=== PATIENT | male | born 1965 | race Caucasian/White ===

== ENCOUNTER 2017-02-15 10:46 | Observation (INO) | payer BC ==
--- NOTE | 2017-02-15 11:43 | PCM.PREANE ---
Preanesthetic Assessment - Anesthesia/Transfusion/Family Hx Anesthesia History: No Prior Anesthesia Family History of Anesthesia Reaction: No Transfusion History: No Prior Transfusion(s) Intubation History: Unknown (no history og intubation) - Review of Systems General: No Symptoms Pulmonary: No Symptoms Cardiovascular: No Symptoms Gastrointestinal: Difficulty swallowing Neurological: No Symptoms Other: Reports: None - Physical Assessment Height: 1.75 m Weight: 70.307 kg ASA Class: 2 Mental Status: Alert & Oriented x3 Airway Class: Mallampati = 2 Dentition: Reports: Normal Dentition (loose teeth front lower) Thyro-Mental Finger Breadths: 3 Mouth Opening Finger Breadths: 1 (sec. to pain) ROM/Head Extension: Full Lungs: Clear to auscultation, Normal respiratory effort Cardiovascular: Regular Rate, Regular Rhythm - Allergies Allergies/Adverse Reactions: Allergies Allergy/AdvReac Type Severity Reaction Status Date / Time shellfish derived Allergy Itching Verified 02/11/17 13:36 - Blood Blood Available: No - Anesthesia Plan Pre-Op Medication Ordered: None - Acknowledgements Anesthesia Type Planned: General Anesthesia Pt an Appropriate Candidate for the Planned Anesthesia: Yes Alternatives and Risks of Anesthesia Discussed w Pt/Guardian: Yes Pt/Guardian Understands and Agrees with Anesthesia Plan: Yes PreAnesthesia Questionnaire HEENT History: Reports: Other (see below) (left sided tonsillar cancer with difficulty swallowing) Other HEENT History: uses reading glasses Cardiovascular History: Reports: None Respiratory History: Reports: None Other Gastrointestinal History: difficulty eating/swallowing Genitourinary History: Reports: None Musculoskeletal History: Reports: Fracture, Neck pain, chronic Other Musculoskeletal History: hx of fx right radius Neurological History: Reports: Concussion Psychiatric History: Reports: Anxiety Other Psychiatric History: anxious over current diagnosis Endocrine/Metabolic History: Reports: None Hematologic History: Reports: None Immunologic History: Reports: None Oncologic (Cancer) History: Reports: Squamous cell carcinoma Other Oncologic History: skin cancer removed from left upper chest in the past Dermatologic History: Reports: None - Past Surgical History Head Surgeries/Procedures: Reports: None HEENT Surgical History: Reports: None Cardiovascular Surgical History: Reports: None Respiratory Surgical History: Reports: None GI Surgical History: Reports: None Male Surgical History: Reports: None Endocrine Surgical History: Reports: None Neurological Surgical History: Reports: None Musculoskeletal Surgical History: Reports: None Oncologic Surgical History: Reports: None Dermatological Surgical History: Reports: None - SUBSTANCE USE Smoking Status *Q: Current Every Day Smoker (1 ppd) Tobacco Use Within Last Twelve Months: Cigarettes Recreational Drug Use History: Yes Recreational Drug Type: Reports: Marijuana/Hashish - HOME MEDS Home Medications: Home Meds Gabapentin [Neurontin] 100 mg PO TID 02/11/17 [History] Gabapentin [Neurontin] 300 mg PO BEDTIME 02/11/17 [History] L.acidoph,Paracasei, B.lactis [Probiotic] 1 cap PO DAILY 02/11/17 [History] Multivitamin [Multi-Vitamin Daily] 1 tab PO DAILY 02/11/17 [History] oxyCODONE 5 - 10 mg PO TIDMEALS 02/11/17 [History]
[2017-02-15] MEDS ORDERED: Lidocaine 2% with EPINEPHrine 1:100,000 20 ML MDV ONE (11:48)
[2017-02-15] MEDS ORDERED: Lidocaine 2% 5 ML SDV ONE (12:09)
[2017-02-15] MEDS ORDERED: Propofol 200 MG/20 ML SDV ONE ×2 (12:10→13:42)
[2017-02-15] MEDS ORDERED: Midazolam 1 MG/ML 2 ML SDV ONE (12:10)
[2017-02-15] MEDS ORDERED: fentaNYL 250 MCG/5 ML SDV ONE (12:10)
--- NOTE | 2017-02-15 15:54 | PCM.HP ---
H&P History of Present Illness - General Date of Service: 02/15/17 - History of Present Illness Initial Comments - Free Text/Narative: I was called to see this gentleman in the same-day surgery suite. 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 He was in surgery today for a total dental extraction by Dr. Reed Best DDS ), oral maxillofacial surgeon. During the immediate postoperative period he was noted to have a wide-complex tachycardia that was pulseless. This lasted approximately 90 seconds. During this time he received several chest compressions. He was given lidocaine one dose intravenously. He subsequently converted to sinus rhythm with a pulse. He has no known prior history of cardiopulmonary disease during the dental extraction he also had drainage of an associated cyst. The dental extraction was performed because of high dose radiation therapy is planned for his tumor. - Related Data Allergies/Adverse Reactions: Allergies Allergy/AdvReac Type Severity Reaction Status Date / Time shellfish derived Allergy Itching Verified 02/11/17 13:36 Home Medications: Home Meds Gabapentin [Neurontin] 100 mg PO TID 02/11/17 [History] Gabapentin [Neurontin] 300 mg PO BEDTIME 02/11/17 [History] L.acidoph,Paracasei, B.lactis [Probiotic] 1 cap PO DAILY 02/11/17 [History] Multivitamin [Multi-Vitamin Daily] 1 tab PO DAILY 02/11/17 [History] oxyCODONE 5 - 10 mg PO TIDMEALS 02/11/17 [History] Past Medical History HEENT History: Reports: Other (see below) (left sided tonsillar cancer with difficulty swallowing) Other HEENT History: uses reading glasses Cardiovascular History: Reports: None. Denies: Afib, CAD, Heart Failure, [facility] Respiratory History: Reports: None Gastrointestinal History: Denies: Cirrhosis Other Gastrointestinal History: difficulty eating/swallowing Genitourinary History: Reports: None. Denies: Chronic renal insuffiency Musculoskeletal History: Reports: Fracture, Neck pain, chronic Other Musculoskeletal History: hx of fx right radius Neurological History: Reports: Concussion Psychiatric History: Reports: Anxiety Other Psychiatric History: anxious over current diagnosis Endocrine/Metabolic History: Reports: None. Denies: Diabetes, type I, Diabetes , type II Hematologic History: Reports: None. Denies: Anticoagulation therapy, Bleeding disorder Immunologic History: Reports: None. 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 Cardiovascular Surgical History: Reports: None Respiratory Surgical History: Reports: None GI Surgical History: Reports: None Male Surgical History: Reports: None Endocrine Surgical History: Reports: None Neurological Surgical History: Reports: None Musculoskeletal Surgical History: Reports: None Oncologic Surgical History: Reports: None Dermatological Surgical History: Reports: None Social & Family History - Tobacco Use Smoking Status *Q: Current Every Day Smoker (1 ppd) Years of Tobacco use: 30 Packs/Tins Daily: 1 - Recreational Drug Use Recreational Drug Use: Yes Drug Use in Last 12 Months: No Recreational Drug Type: Reports: Marijuana/Hashish H&P Review of Systems - Review of Systems: Review Of Systems: See Below Free Text/Narrative: This is unobtainable from the patient. See history of present illness. At the time of my examination the patient was still sedated and intubated nasally. Exam - Exam Exam: See Below - Vital Signs Vital Signs: Last Vital Signs Temp 97.0 F 02/15/17 14:36 Pulse 90 02/15/17 15:30 Resp 15 02/15/17 15:30 BP 150/91 H 02/15/17 15:30 Pulse Ox 99 02/15/17 15:30 Weight: 70.307 kg - Exam Physical Exam Comments:: At the time of my examination the patient is still nasally intubated. Vital signs are as per nurse's charting. His lungs are clear to auscultation heart regular rate and rhythm without murmur. Abdomen nontender. No lower extremity edema. Monitor shows sinus rhythm. - Patient Data Lab Results last 24 hrs: Laboratory Results - last 24 hr 02/15/17 02/15/17 Range/Units 15:26 15:26 WBC 13.02 H (4.0-11.0) K/uL RBC 5.43 (4.50-5.90) M/uL Hgb 15.5 (13.0-17.0) g/dL Hct 47.3 (38.0-50.0) % MCV 87.1 (80.0-98.0) fL MCH 28.5 (27.0-32.0) pg MCHC 32.8 (31.0-37.0) g/dL RDW Std Deviation 42.5 (28.0-62.0) fl RDW Coeff of Lakisha 13 (11.0-15.0) % Plt Count 177 (150-400) K/uL MPV 9.90 (7.40-12.00) fL Neut % (Auto) 86.5 H (48.0-80.0) % Lymph % (Auto) 10.1 L (16.0-40.0) % [place] % (Auto) 2.2 (0.0-15.0) % Eos % (Auto) 0.9 (0.0-7.0) % Baso % (Auto) 0.3 (0.0-1.5) % Neut # (Auto) 11.3 H (1.4-5.7) K/uL Lymph # (Auto) 1.3 (0.6-2.4) K/uL [place] # (Auto) 0.3 (0.0-0.8) K/uL Eos # (Auto) 0.1 (0.0-0.7) K/uL Baso # (Auto) 0.0 (0.0-0.1) K/uL Nucleated RBC % 0.0 /100WBC Nucleated RBCs # 0 K/uL Troponin I < 0.10 (0.0-0.29) NG/ML Result Diagrams: 02/15/17 15:26 *Q Meaningful Use (ADM) - VTE *Q VTE Criteria *Q: - Stroke *Q Stroke Criteria *Q: - AMI *Q AMI Criteria *Q: - Problem List (1) Ventricular tachycardia SNOMED Code(s): 95839888 ICD Code: I47.2 - VENTRICULAR TACHYCARDIA Status: Acute Current Visit: Yes (2) Primary oral squamous cell carcinoma SNOMED Code(s): 265825095 ICD Code: C06.9 - MALIGNANT NEOPLASM OF MOUTH, UNSPECIFIED Status: Acute Current Visit: Yes Problem List Initiated/Reviewed/Updated: Yes Orders Last 24hrs: Active Orders 24 hr Category Date Time Status EKG 12 Lead [EKG Documentation Completion] [RC] URGENT Care 02/15/17 15:09 Active Notify Provider Consults [RC] ASDIRECTED Care 02/15/17 15:24 Active Consult to Physician [CONS] Stat Cons 02/15/17 15:21 Active Chest 1V Frontal [CR] Routine Exams 02/15/17 14:36 Taken COMPREHENSIVE METABOLIC PN,CMP [CHEM] Routine Lab 02/15/17 15:26 Received MAGNESIUM [CHEM] Routine Lab 02/15/17 15:26 Received TROPONIN I [CHEM] Routine Lab 02/15/17 21:12 Ordered TROPONIN I [CHEM] Routine Lab 02/16/17 03:12 Ordered Lactated Ringers [Ringers, Lactated] 1,000 ml Med 02/15/17 12:30 Active IV ASDIRECTED Medication Orders Lactated Ringer's (Ringers, Lactated) 1,000 mls @ 125 mls/hr IV ASDIRECTED FARZAD Assessment/Plan Comment:: Will check a 12-lead EKG, chest x-ray, troponin, electrolytes, magnesium. Will get serial troponins. I spoke with , general surgeon who was planning to do a venous access port on this patient. She will see him back in the office after discharge. I also spoke in detail with , the oral maxillofacial surgeon who operated on him today. He recommended soft diet and is given the patient's family prescriptions for pain medication and antibiotics and Peridex oral rinse postoperatively. Will monitor closely in the intensive care unit on cardiac monitoring. Will seek cardiology consultation. Serial troponins. I spoke with further and advised that I would seek a cardiology consultation on this patient as well.
--- NOTE | 2017-02-15 15:56 | PCM.POSTAN ---
POST ANESTHESIA ASSESSMENT - MENTAL STATUS Mental Status: somnolent - RESPIRATORY Respiratory Status: respiratory rate WNL, airway patent, O2 saturation stable - CARDIOVASCULAR CV Status: pulse rate WNL, blood pressure stable - GASTROINTESTINAL GI Status: no symptoms - POST OP HYDRATION Hydration Status: adequate & stable - OBSERVATIONS Free Text/Narrative:: Pt intra-op with V-tach with no pulse and CPR. Pt will be admitted to ICU for close observation and evaluation by the hospitalist service.
--- NOTE | 2017-02-15 16:09 | CR ---
EXAM DATE: 02/15/17 PATIENT'S AGE: 51 Patient: DAVID ORTEGA Facility: [place], [place] Site . Site : [id number] Study: XRay Chest [id number]/24/2017 3:20:46 PM Ordering Physician: Nasir Jackson Final Report: Indication: Status post impressions during surgical procedure Technique: Chest 1 view Comparison: None Findings: Cardiovascular and mediastinum: Heart size and vasculature are normal in caliber and appearance. Mediastinum is within normal limits. Lungs and pleural space: Lungs are clear. No sign of infiltrate or mass. No sign of pleural effusion. No pneumothorax. Bones and soft tissues: No significant findings. Impression: : No acute abnormality. No pneumothorax or rib fracture identified. Dictated by Freida Garcia MD @ Feb 15 2017 3:43PM (Electronic Signature) Report Signed by Proxy and Original Signed Document filed in the Medical Record. MTDD
[2017-02-15] MEDS ORDERED: Ondansetron 4 MG/2 ML SDV IVPUSH PRN (16:10)
[2017-02-15] MEDS ORDERED: Albuterol/Ipratropium 3.0-0.5 MG/3 ML Neb Soln NEB PRN (16:10)
[2017-02-15] MEDS ORDERED: Acetaminophen 325 MG Tab PO PRN (16:10)
[2017-02-15] MEDS ORDERED: Temazepam 15 MG Cap PO PRN (16:10)
[2017-02-15 16:12] LABS: CHLORIDE,CL 107 mmol/L (98-110); SODIUM,NA 141 mmol/L (136-146)
[2017-02-15] MEDS: HYDROmorphone 2 MG/ML Syringe IVPUSH PRN ×3 (16:43→21:52)
[2017-02-15] MEDS: Ampicillin/Sulbactam Na 1.5 GM in Sodium Chloride 0.9% 50 ML IV SCH ×2 (16:44→22:27)
[2017-02-15] MEDS: Lactated Ringers 1,000 ML IV SCH (16:46)
[2017-02-15] MEDS ORDERED: Ampicillin/Sulbactam Na 1.5 GM in Sodium Chloride 0.9% 50 ML IV SCH ×4 (17:00)
--- NOTE | 2017-02-15 17:57 | OR ---
SURGEON: Reed Best DATE OF PROCEDURE: 02/15/2017 TIME OF SURGERY: 1 p.m. PREOPERATIVE DIAGNOSES: 1. Biopsy-proven squamous cell carcinoma of the left tonsillar pillar. 2. Multiple carious teeth. 3. Cyst of the lower left jaw. 4. Full bony impacted wisdom tooth, #17. 5. Pre-radiation patient. POSTOPERATIVE DIAGNOSES: 1. Biopsy-proven squamous cell carcinoma of the left tonsillar pillar. 2. Multiple carious teeth. 3. Cyst of the lower left jaw. 4. Full bony impacted wisdom tooth, #17. 5. Pre-radiation patient. PROCEDURE: Under general anesthesia, extraction of oral maxillary and mandibular teeth including tooth #17 and enucleation and curettage - Biopsy of a cyst from the left posterior mandible. COMMUNITY DEVELOPMENT AIDE: Chace. ANESTHESIA: General anesthesia via nasotracheal intubation without any complications. ESTIMATED BLOOD LOSS: 150 mL. TOTAL IV FLUIDS: 2 L of D5 normal saline. COMPLICATIONS: At the end of the procedure, the patient had an episode of supraventricular tachycardia, pulseless. In the operating room, we did CPR for approximately 20 seconds until the patient was back. JUSTIFICATION FOR THIS PROCEDURE: Mr. 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 Because of the high dose of radiation, they were planning to give this patient. He was on his best interest to have all his maxillary and mandibular teeth removed to prevent osteoradionecrosis of the jaw and also this gentleman had a large cyst of the left posterior mandible that the Radiation/Oncology was trying to rule out as a metastatic lesion versus a dentigerous cyst associated with full bony impacted tooth #17. He has also scheduled to have a port for chemotherapy as well here at [facility]. I had the opportunity to talk to his dentist. We did obtain medical clearance about his procedure. His dentist already took impressions for fabrication of an upper and lower denture, and they were trying to move as fast as we could with his procedure. Because after the teeth had removed, we need to wait approximately 3 weeks for healing before they start radiation. Thus they went over period of time that is safe for the patient to avoid any complications once he start radiation therapy. Consent form was obtained among the complications that I discussed with this patient in detail was the possibility of having temporary versus permanent anesthesia sensation of the left corner of the mouth because the impacted wisdom tooth #17 was extremely close to the left inferior alveolar nerve. I did explain in detail that sometimes this condition is permanent, but in front of the situation when he was diagnosed with his squamous cell carcinoma, the patient completely understood and he also understood he needed to move forward as soon as possible, so he could start treatment for this large tumor of the left tonsillar pillar. PROCEDURE IN DETAIL: The patient was taken down to the operating room. He was placed in a supine position. He was identified by name and identification badge, and at that time, the patient was turn over to the anesthesia team. He was nasally intubated without any complications. He was turned back to the oral-maxillofacial surgery team. He was prepped and draped in a sterile fashion for an oral-maxillofacial surgery procedure. A time-out procedure was done. We did place throat pack oropharyngeal device to preventing from swallowing any teeth during the surgery and then he was anesthetized with lidocaine 2% and 1:100,000 with epinephrine. We used 8 carpules of lidocaine 2% with 1:100,000 with epinephrine. We waited approximately 10 minutes for this medications to effect and then we started surgery on the upper right quadrant. With a 15 blade, we made circular incisions about teeth #3, #5, #6, #7, and #8 with a #9 periosteal elevator, we reflected a mucoperiosteal flap. Then using a 557 surgical cindi and constant irrigation with normal saline solution, we removed bone that was covering the roots of this teeth and then they were extracted with a 150 universal forceps without any complications. Surgical sites were both irrigated with normal saline solution with a bone file instrument, we smoothed the bone surfaces and then we took sutures with 4-0 chromic in interrupted fashion. Then we went to the upper left quadrant. With a 15 blade, we made circular incisions around teeth #9, #10, #11, #13, and #15 with a #9 periosteal elevator, we reflected a mucoperiosteal flap. Teeth were luxated with a straight elevator and then we moved one by one with a 150 universal forceps. Surgical sites were all curetted out with Raciel curette, irrigated thoroughly with normal saline solution and then we took sutures with 4-0 chromic in interrupted fashion. We moved to the lower right quadrant. With a 15 blade, we made circular incisions around teeth #31, #30, #29, #28, #27, #26, and #25 with a #9 periosteal elevator, we reflected a mucoperiosteal flap. Teeth were luxated with a straight elevator with a 575 surgical cindi and constant irrigation with normal saline solution. We sectioned teeth #30 and #31 right in the middle. The roots were removed. All the rest of the teeth on that quadrant were removed without any complications. Surgical sites were curetted out with Raciel curette, irrigated with normal saline solution with a bone file instrument, we smoothed all the bone surfaces and then we took sutures with 4-0 chromic in interrupted fashion. We went to the lower left quadrant. With a 15 blade, we made circular incisions around teeth #18, #19, #20, #21, #22, #23, and #24 and we made an incision distal of tooth #17 with a #9 periosteal elevator, we reflected a mucoperiosteal flap. The left mandibular posterior bone was exposed. Using a pineapple cindi, we removed the buccal bone and then we clearly saw immediately the cystic lesion posterior of teeth #17. Using a Raciel curette, we were able to detach the entire cyst from the nap[place] bone and then with an Allis clamp, we were able to hold the cyst and then with a Raciel curette, we detached the cyst from the buccal bone wall. The cyst was removed, placed in a container, and sent to pathology for examination because we wanted to rule out malignancy and then teeth #17 was removed as well. We detached teeth #17 from the left inferior alveolar nerve and the nerve was preserved and it was intact. We curetted out the cystic lining. We irrigated with normal saline solution and then with a 151 universal forceps, we removed teeth #18, #19, #20, #21, #22, #23, and #24. Teeth #18 and #19 were surgically removed with sectioning the teeth in the middle, removed the roots separately and then we used a Raciel curette in every single surgical site. We used a bone file instrument to smooth all the bone surfaces and then we took sutures with 4-0 chromic in interrupted fashion. At that point, the patient went in supraventricular tachycardia, pulseless, and we started CPR. We removed the oropharyngeal throat pack. We irrigated the mouth with normal saline solution. We packed the surgical sites with the sponges that they were protected with a cord out of the mouth to make sure the patient will not swallow those and we started CPR for approximately 20 seconds and then the patient came back. Anesthesiologist were calling to the operating room. The patient was then transported to anesthesia recovery unit. He was extubated without any complication, but he was admitted to the hospital for observation and cardiac workup. Dr. Norwood was consulted, hospitalist, here in the [facility], and he was admitting the patient who was planning the spend the overnight here in the ICU. From the oral-maxillofacial surgery standpoint, there was no complications with his surgery except that the supraventricular tachycardia was a problem at the end of the case, but the patient came out positively and he was transported to the ICU. All the teeth were sent to pathology for examination as well. Pathology was consulted as well for evaluation of this lesion and to make sure there was no metastatic lesion. Physician responsible for this operative report is Reed Best DDS. MARTINE THAKUR /[id number]
--- NOTE | 2017-02-16 | PCM48HPAN ---
Post Anesthesia Note - EVALUATION WITHIN 48HRS OF ANESTHETIC Vital Signs in Normal Range: Yes Patient Participated in Evaluation: Yes Respiratory Function Stable: Yes Airway Patent: Yes Cardiovascular Function Stable: Yes Hydration Status Stable: Yes Pain Control Satisfactory: Yes Nausea and Vomiting Control Satisfactory: Yes Mental Status Recovered: Yes - COMMENTS/OBSERVATIONS Free Text/Narrative:: Pt had an episode of pulse less wide v-tach intra-op that required compressions. One dose of Lidocaine 100mg IVP was given and patient converted to SR before defibrillation could be attempted. Pt currently in the ICU and is stable at this point. Further evaluation tomorrow by cardiology pending at this point.
[2017-02-16] MEDS: HYDROmorphone 2 MG/ML Syringe IVPUSH PRN ×3 (01:45→08:54)
[2017-02-16] MEDS: Lactated Ringers 1,000 ML IV SCH (01:51)
[2017-02-16 03:42] LABS: CHLORIDE,CL 105 mmol/L (98-110); SODIUM,NA 138 mmol/L (136-146)
[2017-02-16] MEDS: Ampicillin/Sulbactam Na 1.5 GM in Sodium Chloride 0.9% 50 ML IV SCH ×2 (05:18→11:12)
[2017-02-16] MEDS ORDERED: Phenylephrine/Normal Saline 100 MCG/ML 10 ML Syringe ONE (07:06)
[2017-02-16] MEDS ORDERED: ePHEDrine 50 MG/ML SDV ONE (07:06)
[2017-02-16] MEDS ORDERED: Succinylcholine/Normal Saline 200 MG/10 ML Syringe ONE (07:06)
[2017-02-16] MEDS ORDERED: Magnesium Sulfate/Water 40 GM/1,000 ML BAG IV SCH (08:15)
[2017-02-16] MEDS ORDERED: Magnesium Sulfate/Water 4 GM in Premix Bag 1 BAG IV ONE (08:21)
[2017-02-16 09:13] VITALS: BP 116/76
--- NOTE | 2017-02-17 07:42 | CONS ---
DATE OF CONSULTATION: DATE OF : 1965 PRIMARY CARE PHYSICIAN: Vaibhav Laguna MD REASON FOR CONSULTATION: Wide-complex tachycardia after surgery. HISTORY OF PRESENT ILLNESS: This is a 51-year-old male, active smoker, without prior cardiac history, presented to the hospital for a tooth extraction. He was going for tooth extraction on the same day of surgery. He had a general anesthesia intubation and during the procedure, he also received propofol IV drip and phenylephrine due to the episodes of hypotension intraoperatively and then when he was out from the OR, immediately he was found to have his wide-complex tachycardia with a heart rate of probably 160 to 180 and then he underwent a CPR chest compressions for 1 minute as well as lidocaine was given, and he converted to sinus rhythm. At that time, it was noted that the pulse was not palpable and it was not palpable, and the blood pressure cannot be measured at time, and he was transferred to the ICU. The echo was ordered and still pending and the laboratory result showing that WBC was high 17 with hematocrit of 43, platelet of 184. Serum sodium 138, potassium 4.4, chloride 105, bicarbonate 24, BUN is 11, creatinine 0.1. Troponin was negative x3. Sodium 127, calcium 8.6, magnesium 1.6. Currently, he denies any chest pain, and never experienced any chest pressure or shortness of breath. PAST MEDICAL HISTORY: He denied history of hypertension, diabetes, or hyperlipidemia. SOCIAL HISTORY: He is smoking, active smoker, and occasional alcohol use, but he has a history of substance abuse long time ago in the past. FAMILY HISTORY: His father had a history of CAD. His mother has a history of CVA. ALLERGIES: He is allergic to shellfish derivatives. MEDICATIONS: Including ampicillin IV, Dilaudid IV. REVIEW OF SYSTEMS: A 12-point review of systems has been negative except indicated in HPI. PHYSICAL EXAMINATION: VITAL SIGNS: Blood pressure is 133/78, heart rate of 59, O2 saturation is 95% on 1 L, respirations 20. HEENT: Mild pale. No jaundice. Mouth, dry and no JVD. HEART: Normal S1 and S2. No murmur. LUNGS: Clear. ABDOMEN: Soft, nontender. Bowel sounds are present. No hepatosplenomegaly. EXTREMITIES: Legs, no edema. LABORATORY INVESTIGATIONS: EKG strip show questioning the episodes of AV block followed by wide-complex tachycardia seemed to be monomorphic. Echo still pending. ASSESSMENT AND PLAN: This is a 51-year-old male with history of active smoker, denies history of diabetes, hypertension, or hyperlipidemia, status post of day #1 tooth extraction, have wide-complex tachycardia with the episodes of AV block preceding, converted to sinus rhythm after lidocaine and chest compression for 1 minute. I have a suspicion that this could be related to ventricular tachycardia. I will probably going to assess his coronary artery disease by doing a stress test and also going to check his lipid panel and A1c to assess the risk factor of CAD. In meantime, I believe this wide-complex tachycardia could be due to also the episodes of hypotension during the operation as well. Meantime, I will keep potassium more than 4, magnesium more than 2, and I will start him on low-dose beta-deisy Toprol-XL 25. He is going to have EGD with Port-A-Cath placement as well as the G-tube placement by the General Surgery as an outpatient, but I would recommend to assess his coronary artery disease first before going forward. GURWINDER / OFE /[id number] JONATHAN
--- NOTE | 2017-02-18 15:00 | PCM.DCSUM1 ---
[id number] Text/Narrative:: Admission diagnoses: #1. 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 Status post complete dental extraction #3. Ventricular tachycardia requiring resuscitation Discharge diagnoses: #1. 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 Status post complete dental extraction #3. Ventricular tachycardia requiring resuscitation, resolved 51-year-old male that was admitted after experiencing pulseless ventricular tachycardia following complete dental extraction secondary to left-sided tonsillar pillar squamous cell carcinoma that soon will require radiation therapy. Patient had a complete dental extraction by Dr. Reed Best DDS. At the end of the procedure it was noted that the patient was in ventricular tachycardia with wide complex that was pulseless. He received CPR and a dose of lidocaine and converted back to sinus rhythm. He did require a short period of intubation and then was transferred to the ICU for close monitoring. While in the ICU he did not require intubation, was monitored on telemetry which showed that the patient remained in sinus rhythm with a normal heart rate and blood pressure. Echocardiogram was obtained showing an ejection fraction of 60-65%. Serial troponins were negative. Chest x-ray following CPR showed no rib fracture and no acute abnormalities. At time of discharge his white blood cell count was 17,000 likely secondary to his recent surgery. He was seen by our v belt inspector who recommended that the patient be discharged on metoprolol succinate 25 mg daily. At the time of discharge the patient was ambulating, voiding appropriately and tolerating a soft diet. Pain medications and antibiotics were provided by Dr. Best. - Discharge Data Discharge Date: 02/16/17 Discharge Disposition: Home, Self-Care 01 Condition: Good - Patient Summary/Data Consults: Consultations 02/15/17 15:21 Consult to Physician [CONS] Stat 02/15/17 16:37 Consult to Physician [CONS] Urgent - Patient Instructions Diet: Mechanical Soft Activity: As Tolerated Driving: Do Not Drive Showering/Bathing: May Shower Notify Provider of: Fever, Increased Pain, Nausea and/or Vomiting Other/Special Instructions: He will discuss ECHO results with Dr. Freedman. Dr. Freedman has also set him up for an exercise stress test. - Discharge Plan Prescriptions/Med Rec: Metoprolol Succinate 25 mg PO DAILY #30 tab.er.24h Home Medications: Home Meds Gabapentin [Neurontin] 100 mg PO TID 02/11/17 [History] Gabapentin [Neurontin] 300 mg PO BEDTIME 02/11/17 [History] L.acidoph,Paracasei, B.lactis [Probiotic] 1 cap PO DAILY 02/11/17 [History] Multivitamin [Multi-Vitamin Daily] 1 tab PO DAILY 02/11/17 [History] oxyCODONE 5 - 10 mg PO TIDMEALS 02/11/17 [History] Metoprolol Succinate 25 mg PO DAILY #30 tab.er.24h 02/16/17 [Rx] Patient Handouts: Metoprolol tablets, Dental Extraction, Care After, Easy-to- Read Referrals: [facility] [Outside] [facility] [Outside] Tasha Dinh MD [Physician] - 02/23/17 2:00 pm David Laguna MD [Primary Care Provider] - 02/23/17 12:30 pm Reed Best DDS [Physician] - 02/22/17 3:00 pm - Discharge Summary/Plan Comment DC Time >30 min.: No Discharge Summary/Plan Comment: Admission diagnoses: #1. 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 Status post complete dental extraction #3. Ventricular tachycardia requiring resuscitation Discharge diagnoses: #1. 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 Status post complete dental extraction #3. Ventricular tachycardia requiring resuscitation, resolved 51-year-old male that was admitted after experiencing pulseless ventricular tachycardia following complete dental extraction secondary to left-sided tonsillar pillar squamous cell carcinoma that soon will require radiation therapy. Patient had a complete dental extraction by Dr. Reed Best DDS. At the end of the procedure it was noted that the patient was in ventricular tachycardia with wide complex that was pulseless. He received CPR and a dose of lidocaine and converted back to sinus rhythm. He did require a short period of intubation and then was transferred to the ICU for close monitoring. While in the ICU he did not require intubation, was monitored on telemetry which showed that the patient remained in sinus rhythm with a normal heart rate and blood pressure. Echocardiogram was obtained showing an ejection fraction of 60-65%. Serial troponins were negative. Chest x-ray following CPR showed no rib fracture and no acute abnormalities. At time of discharge his white blood cell count was 17,000 likely secondary to his recent surgery. He was seen by our v belt inspector who recommended that the patient be discharged on metoprolol succinate 25 mg daily. At the time of discharge the patient was ambulating, voiding appropriately and tolerating a soft diet. Pain medications and antibiotics were provided by Dr. Best. Discharge plan: #1. Patient will follow up with v belt inspector Dr. Dinh, on February 23, 2017. He has also been scheduled for an exercise stress test. #2. Patient will followup with his primary care provider, Dr. Laguna, on February 23, 2017. #3. Patient will followup with Dr. Best, [place], on February 22, 2017. #4. Prescribe metoprolol succinate 25 mg daily, 30 tabs, zero refills. #5. Pain medications and antibiotics were prescribed by Dr. Best. - Patient Data Vitals - Most Recent: Last Vital Signs Temp 98.4 F 02/16/17 08:00 Pulse 82 02/16/17 09:00 Resp 15 02/16/17 09:00 BP 116/76 02/16/17 09:00 Pulse Ox 94 L 02/16/17 09:00 Weight - Most Recent: 72.1 kg Med Orders - Current: Current Medications Discontinued Medications Acetaminophen (Tylenol) 650 mg PO Q4H PRN PRN Reason: Pain (Mild 1-3)/fever Albuterol/Ipratropium (Duoneb 3.0-0.5 Mg/3 Ml) 3 ml NEB Q4HRRT PRN PRN Reason: Shortness Of Breath/wheezing Ephedrine Sulfate (Ephedrine Sulfate) Confirm Administered Dose 50 mg .ROUTE .STK-MED ONE Stop: 02/16/17 07:07 Fentanyl (Sublimaze) Confirm Administered Dose 250 mcg .ROUTE .STK-MED ONE Stop: 02/15/17 12:11 Hydromorphone HCl (Dilaudid) 1 mg IVPUSH Q2H PRN PRN Reason: Pain (severe 7-10) Last Admin: 02/16/17 08:54 Dose: 1 mg Lactated Ringer's (Ringers, Lactated) 1,000 mls @ 125 mls/hr IV ASDIRECTED FARZAD Last Admin: 02/16/17 01:51 Dose: 125 mls/hr Ampicillin Sodium/Sulbactam (Sodium 1.5 gm/ Sodium Chloride) 50 mls @ 200 mls/ hr IV Q6H FARZAD Ampicillin Sodium/Sulbactam (Sodium 1.5 gm/ Sodium Chloride) 50 mls @ 100 mls/ hr IV Q6H [facility] Last Admin: 02/15/17 16:45 Dose: Not Given Ampicillin Sodium/Sulbactam (Sodium 1.5 gm/ Sodium Chloride) 50 mls @ 100 mls/ hr IV Q6H [facility] Last Admin: 02/16/17 11:12 Dose: 100 mls/hr Magnesium Sulfate 4 gm/ Premix 100 mls @ 50 mls/hr IV ONETIME ONE Stop: 02/16/17 10:20 Last Admin: 02/16/17 08:55 Dose: 50 mls/hr Lidocaine (Xylocaine-Mpf 2%) Confirm Administered Dose 10 ml .ROUTE .STK-MED ONE Stop: 02/15/17 12:10 Lidocaine/Epinephrine (Xylocaine 2% With Epinephrine 1:100,000) Confirm Administered Dose 20 ml .ROUTE .STK-MED ONE Stop: 02/15/17 11:49 Midazolam HCl (Versed 1 Mg/Ml) Confirm Administered Dose 2 mg .ROUTE .STK-MED ONE Stop: 02/15/17 12:11 Ondansetron HCl (Zofran) 4 mg IVPUSH Q4H PRN PRN Reason: Nausea Phenylephrine HCl (Phenylephrine In Ns 100 Mcg/Ml) Confirm Administered Dose 1 mg .ROUTE .STK-MED ONE Stop: 02/16/17 07:07 Phenylephrine HCl (Rufino-Synephrine 0.25% Mild Nasal [place]) Confirm Administered Dose 15 ml .ROUTE .STK-MED ONE Stop: 02/16/17 07:08 Propofol (Diprivan 20 Ml) Confirm Administered Dose 400 mg .ROUTE .STK-MED ONE Stop: 02/15/17 12:11 Propofol (Diprivan 20 Ml) Confirm Administered Dose 400 mg .ROUTE .STK-MED ONE Stop: 02/15/17 13:43 Succinylcholine Chloride (Succinylcholine In Ns Pf) Confirm Administered Dose 200 mg .ROUTE .STK-MED ONE Stop: 02/16/17 07:07 Temazepam (Restoril) 15 mg PO BEDTIME PRN PRN Reason: Sleep *Q Meaningful Use (DIS) - VTE *Q VTE Criteria *Q: - Stroke *Q Stroke Criteria *Q: - AMI *Q AMI Criteria *Q: <Mathieu Estrada Renetta - Last Filed: 02/25/17 19:59> Discharge Summary - Patient Summary/Data Consults: Consultations 02/15/17 15:21 Consult to Physician [CONS] Stat 02/15/17 16:37 Consult to Physician [CONS] Urgent - Patient Data Vitals - Most Recent: Last Vital Signs Temp 36.9 C 02/16/17 08:00 Pulse 82 02/16/17 09:00 Resp 15 02/16/17 09:00 BP 116/76 02/16/17 09:00 Pulse Ox 94 L 02/16/17 09:00 Med Orders - Current: Current Medications Discontinued Medications Acetaminophen (Tylenol) 650 mg PO Q4H PRN PRN Reason: Pain (Mild 1-3)/fever Albuterol/Ipratropium (Duoneb 3.0-0.5 Mg/3 Ml) 3 ml NEB Q4HRRT PRN PRN Reason: Shortness Of Breath/wheezing Ephedrine Sulfate (Ephedrine Sulfate) Confirm Administered Dose 50 mg .ROUTE .STK-MED ONE Stop: 02/16/17 07:07 Fentanyl (Sublimaze) Confirm Administered Dose 250 mcg .ROUTE .STK-MED ONE Stop: 02/15/17 12:11 Hydromorphone HCl (Dilaudid) 1 mg IVPUSH Q2H PRN PRN Reason: Pain (severe 7-10) Last Admin: 02/16/17 08:54 Dose: 1 mg Lactated Ringer's (Ringers, Lactated) 1,000 mls @ 125 mls/hr IV ASDIRECTED [facility] Last Admin: 02/16/17 01:51 Dose: 125 mls/hr Ampicillin Sodium/Sulbactam (Sodium 1.5 gm/ Sodium Chloride) 50 mls @ 200 mls/ hr IV Q6H [facility] Ampicillin Sodium/Sulbactam (Sodium 1.5 gm/ Sodium Chloride) 50 mls @ 100 mls/ hr IV Q6H [facility] Last Admin: 02/15/17 16:45 Dose: Not Given Ampicillin Sodium/Sulbactam (Sodium 1.5 gm/ Sodium Chloride) 50 mls @ 100 mls/ hr IV Q6H [facility] Last Admin: 02/16/17 11:12 Dose: 100 mls/hr Magnesium Sulfate 4 gm/ Premix 100 mls @ 50 mls/hr IV ONETIME ONE Stop: 02/16/17 10:20 Last Admin: 02/16/17 08:55 Dose: 50 mls/hr Lidocaine (Xylocaine-Mpf 2%) Confirm Administered Dose 10 ml .ROUTE .STK-MED ONE Stop: 02/15/17 12:10 Lidocaine/Epinephrine (Xylocaine 2% With Epinephrine 1:100,000) Confirm Administered Dose 20 ml .ROUTE .STK-MED ONE Stop: 02/15/17 11:49 Midazolam HCl (Versed 1 Mg/Ml) Confirm Administered Dose 2 mg .ROUTE .STK-MED ONE Stop: 02/15/17 12:11 Ondansetron HCl (Zofran) 4 mg IVPUSH Q4H PRN PRN Reason: Nausea Phenylephrine HCl (Phenylephrine In Ns 100 Mcg/Ml) Confirm Administered Dose 1 mg .ROUTE .STK-MED ONE Stop: 02/16/17 07:07 Phenylephrine HCl (Rufino-Synephrine 0.25% Mild Nasal [place]) Confirm Administered Dose 15 ml .ROUTE .STK-MED ONE Stop: 02/16/17 07:08 Propofol (Diprivan 20 Ml) Confirm Administered Dose 400 mg .ROUTE .STK-MED ONE Stop: 02/15/17 12:11 Propofol (Diprivan 20 Ml) Confirm Administered Dose 400 mg .ROUTE .STK-MED ONE Stop: 02/15/17 13:43 Succinylcholine Chloride (Succinylcholine In Ns Pf) Confirm Administered Dose 200 mg .ROUTE .STK-MED ONE Stop: 02/16/17 07:07 Temazepam (Restoril) 15 mg PO BEDTIME PRN PRN Reason: Sleep *Q Meaningful Use (DIS) - VTE *Q VTE Criteria *Q: - Stroke *Q Stroke Criteria *Q: - AMI *Q AMI Criteria *Q: - Free Text/Narrative Note: I have examined the patient. I have discussed treatment plan with resident. I agree with assessment and plan outlined in the following resident's note.
--- NOTE | 2017-02-18 17:56 | ECHO ---
EXAM DATE: 02/15/17 The echocardiogram report can be seen in this patient's EMR (Electronic Medical Record) in the Reports section. JONATHAN
== END 2017-02-16 12:25 | disposition home or self-care (01) ==
LOC: MW.SDS 10:46 → INTOOBSV 16:10 → MW.ICU 16:10 → UNDOADMIN 16:11
PROVIDERS: ADMIT Family Medicine; ATTEND Family Medicine
PROC: 0CDXXZ1 Extraction of Lower Tooth, Multiple, External Approach (ICD-10-PCS; principal; 2017-02-15)
PROC: 0CDWXZ1 Extraction of Upper Tooth, Multiple, External Approach (ICD-10-PCS; 2017-02-15)
DX: K02.9 Dental caries, unspecified (principal); K09.0 Developmental odontogenic cysts; K01.1 Impacted teeth; C09.1 Malignant neoplasm of tonsillar pillar (anterior) (posterior); I47.2 Ventricular tachycardia; F41.9 Anxiety disorder, unspecified; F17.210 Nicotine dependence, cigarettes, uncomplicated; Z91.013 Allergy to seafood; Z79.899 Other long term (current) drug therapy; Z98.890 Other specified postprocedural states
CPT/HCPCS: 36415; 41826; 41899; 71010; 80053; 83735; 84484; 85025; 93005; 93306; A9270; G0378; J0287; J1170; J2250; J3010; J3475; J7050; J7120; 00190; 88305; J2704

== ENCOUNTER → 2017-02-25 | Outpatient (CLI) | payer BC ==
--- NOTE | 2017-02-25 08:16 | PCM.PRNOTE ---
- Free Text/Narrative Note: Exercise MIBI Indication CP Sestamibi Tc99 25 MCi was given at the peak HR Patient was brought to the stress test lab in postabsorptive state verbal and paper consent was obtained from patient Vital signs at resting state blood pressure of 110/78with a heart rate of 107 EKG shows sinus rhythm no ST changes no Q waves Maximal heart rate of 166 and target heart rate is 143 Patient reached the target heart rate, completed stage III Jesse protocol Peak blood pressure is 152/78 Total exercise time of 6.[address] changes with a peak heart rate no arrhythmia METS 7 No symptom of chest pain or feeling dizzy Impression Normal hemodynamics, normal chronotropic, adequate exercise capacity, negative for ischemia on EKG Plan Nuclear portion pending
--- NOTE | 2017-02-25 13:53 | NM ---
EXAMINATION: Nuclear medicine myocardial perfusion study with exercise stress test. HISTORY: Stress. PROCEDURE: Patient exercised according to Jesse protocol for 6 minutes and 42 seconds and achieved maximal hear t rate of 166 beats per minute. Adequate exercise. Following intravenous administration of 25.8 mCi of technetium 99m sestamibi, stress SPECT images including gating imaging was performed. FINDINGS: Stress myocardial SPECT images demonstrates mildly decreased perfusion along the inferior to inferos eptal wall, likely diaphragmatic attenuation artifact. Review of gated images demonstrates normal wall motion, contractility and wall thickening. The left ventricular ejection fraction is 62 %. The left ventricular chamber size is normal. IMPRESSION: 1. Mildly decreased perfusion along the inferior wall, most likely diaphragmatic attenuation artifac t. If further correlation is needed follow-up with rest imaging. 2. Normal ventricular chamber size and function with ejection fraction of 62 %.
== END | disposition home or self-care (01) ==
LOC: MW.NM 06:25
PROVIDERS: ATTEND Dentist Oral and Maxillofacial Surgery
DX: Z92.89 Personal history of other medical treatment (principal); R93.1 Abnormal findings on diagnostic imaging of heart and coronary circulation
CPT/HCPCS: 78451; 93017; A9500

== ENCOUNTER → 2017-03-01 | Outpatient (CLI) | payer BC ==
--- NOTE | 2017-03-02 08:37 | NM ---
EXAMINATION: Rest myocardial perfusion study HISTORY: Ventricular tachycardia COMPARISON: 02/25/2017 TECHNIQUE: Additional images were obtained at rest underlying the administration of 26.7 mCi of tech netium 99m labeled sestamibi. FINDINGS/IMPRESSION: Overall of the left ventricular uptake at rest is similar to the stress imaging with mildly decreased uptake along the inferior wall. Ejection fraction at rest is 52%. Wall motio n appears unchanged. The TID is 1.2.
== END | disposition home or self-care (01) ==
LOC: MW.NM 08:25
PROVIDERS: ATTEND Dentist Oral and Maxillofacial Surgery
DX: I47.2 Ventricular tachycardia (principal)
CPT/HCPCS: 78451; A9500

== ENCOUNTER 2017-03-04 06:16 | Day surgery (SDC) | payer BC ==
[~2017-03-04 06:16] MED LIST: Lactated Ringers 1,000 ML IV SCH; Sodium Chloride 0.9% 10 ML Syringe FLUSH PRN; Sodium Chloride 0.9% 2.5 ML Syringe FLUSH PRN; ceFAZolin 1 GM in Premix Bag 1 BAG IV ONE
--- NOTE | 2017-03-04 06:52 | PCM.PREANE ---
Preanesthetic Assessment - Anesthesia/Transfusion/Family Hx Anesthesia History: Prior Anesthesia Without Reaction Family History of Anesthesia Reaction: No Transfusion History: No Prior Transfusion(s) Intubation History: Unknown (no history og intubation) - Review of Systems General: No Symptoms Pulmonary: No Symptoms Cardiovascular: No Symptoms Gastrointestinal: No symptoms Neurological: No Symptoms Other: Reports: None - Physical Assessment O2 Sat by Pulse Oximetry: 97 Respiratory Rate: 18 Vital Signs: Last Vital Signs Temp 36.7 C 03/04/17 06:33 Pulse 85 03/04/17 06:33 Resp 18 03/04/17 06:33 BP 113/69 03/04/17 06:33 Pulse Ox 97 03/04/17 06:33 Height: 1.75 m Weight: 72.1 kg ASA Class: 3 Mental Status: Alert & Oriented x3 Airway Class: Mallampati = 2 Dentition: Reports: Edentulous Thyro-Mental Finger Breadths: 3 Mouth Opening Finger Breadths: 2 ROM/Head Extension: Full Lungs: Clear to auscultation, Normal respiratory effort Cardiovascular: Regular Rate, Regular Rhythm - Allergies Allergies/Adverse Reactions: Allergies Allergy/AdvReac Type Severity Reaction Status Date / Time shellfish derived Allergy Itching Verified 02/11/17 13:36 - Blood Blood Available: No - Anesthesia Plan Pre-Op Medication Ordered: None - Acknowledgements Anesthesia Type Planned: MAC Pt an Appropriate Candidate for the Planned Anesthesia: Yes Alternatives and Risks of Anesthesia Discussed w Pt/Guardian: Yes Pt/Guardian Understands and Agrees with Anesthesia Plan: Yes PreAnesthesia Questionnaire HEENT History: Reports: Other (see below) (underwent recent left jaw cyst excision and removal of remaining teeth before treatment of squamous cell CA of the right tonsill. During the case got run of wide complex pulsless tachi and received chest compression. RI rooled out postop.) Other HEENT History: uses reading glasses Cardiovascular History: Other Cardiovascular History: cardiac problems during last surgery, cleared by Dr. Freedman Respiratory History: Reports: None Other Gastrointestinal History: difficulty eating/swallowing Genitourinary History: Reports: None Musculoskeletal History: Reports: Fracture, Neck pain, chronic Other Musculoskeletal History: hx of fx right radius Neurological History: Reports: Concussion Psychiatric History: Reports: Anxiety Other Psychiatric History: anxious over current diagnosis Endocrine/Metabolic History: Reports: None Hematologic History: Reports: None Immunologic History: Reports: None Oncologic (Cancer) History: Reports: Squamous cell carcinoma Other Oncologic History: skin cancer removed from left upper chest in the past, recent dx of squamous cell cancer of the throat Dermatologic History: Reports: None - Past Surgical History Head Surgeries/Procedures: Reports: None HEENT Surgical History: Reports: Oral surgery, Other (see below) Other HEENT Surgeries/Procedures: total dental extraction 02/15/2017. Cardiovascular Surgical History: Reports: None Respiratory Surgical History: Reports: None GI Surgical History: Reports: None Other GI Surgeries/Procedures: due to oral ca, dental extraction performed Male Surgical History: Reports: None Endocrine Surgical History: Reports: None Neurological Surgical History: Reports: None Musculoskeletal Surgical History: Reports: None Oncologic Surgical History: Reports: None Dermatological Surgical History: Reports: None - SUBSTANCE USE Smoking Status *Q: Current Every Day Smoker Tobacco Use Within Last Twelve Months: Cigarettes Days Per Week of Alcohol Use: 1 Number of Drinks Per Day: 2 Total Drinks Per Week: 2 Recreational Drug Use History: Yes Recreational Drug Type: Reports: Marijuana/Hashish - HOME MEDS Home Medications: Home Meds Gabapentin [Neurontin] 100 mg PO BID 02/11/17 [History] Gabapentin [Neurontin] 300 mg PO BEDTIME 02/11/17 [History] L.acidoph,Paracasei, B.lactis [Probiotic] 1 cap PO DAILY 02/11/17 [History] Multivitamin [Multi-Vitamin Daily] 1 tab PO DAILY 02/11/17 [History] Metoprolol Succinate 25 mg PO DAILY #30 tab.er.24h 02/16/17 [Rx] Docusate Sodium [Colace] 100 mg PO DAILY 03/03/17 [History] Hydrocodone/Acetaminophen [Hydrocodon-Acetaminophn 10-325] 1 tab PO Q4HR PRN 08/10 [History] - CURRENT (IN HOUSE) MEDS Current Meds: Current Medications Lactated Ringer's (Ringers, Lactated) 1,000 mls @ 125 mls/hr IV ASDIRECTED FARZAD Last Admin: 03/04/17 06:37 Dose: 125 mls/hr Sodium Chloride (Saline Flush) 10 ml FLUSH ASDIRECTED PRN PRN Reason: Keep Vein Open Sodium Chloride (Saline Flush) 2.5 ml FLUSH ASDIRECTED PRN PRN Reason: Keep Vein Open Discontinued Medications Cefazolin Sodium/Dextrose 1 gm (/ Premix) 50 mls @ 100 mls/hr IV ONETIME ONE Stop: 03/03/17 14:31
[2017-03-04] MEDS ORDERED: Heparin Sodium 100 Units/ML 3 ML Syringe ONE (07:24)
[2017-03-04] MEDS ORDERED: Lidocaine 1% 20 ML MDV ONE (07:24)
[2017-03-04] MEDS ORDERED: Bupivacaine 0.5% 10 ML SDV ONE (07:24)
[2017-03-04] MEDS ORDERED: Propofol 200 MG/20 ML SDV ONE (07:28)
[2017-03-04] MEDS ORDERED: Lidocaine 2% 5 ML SDV ONE (07:28)
[2017-03-04] MEDS ORDERED: Midazolam 1 MG/ML 2 ML SDV ONE (07:29)
[2017-03-04] MEDS ORDERED: Ondansetron 4 MG/2 ML SDV ONE (07:29)
[2017-03-04] MEDS ORDERED: ceFAZolin 1 GM Vial ONE (07:35)
[2017-03-04] MEDS ORDERED: Sodium Chloride 0.9% 20 ML ONE (07:35)
[2017-03-04] MEDS ORDERED: fentaNYL 100 MCG/2 ML SDV ONE (08:24)
--- NOTE | 2017-03-04 09:17 | PCM.OPNOTE ---
- General Post-Op/Procedure Note Date of Surgery/Procedure: 03/04/17 Operative Procedure(s): Right internal jugular port a cath placement Findings: Right internal jugular port placement Pre Op Diagnosis: Squamous cell cancer of tonsil Post-Op Diagnosis: same Anesthesia Technique: Moderate sedation Primary Surgeon: Keisha Zuniga EBL in mLs: 5 Condition: Good
--- NOTE | 2017-03-04 09:32 | PCM.POSTAN ---
POST ANESTHESIA ASSESSMENT - MENTAL STATUS Mental Status: alert, oriented - RESPIRATORY Respiratory Status: respiratory rate WNL, airway patent, O2 saturation stable - GASTROINTESTINAL GI Status: no symptoms - PAIN Pain Score: 6 - POST OP HYDRATION Hydration Status: adequate & stable - OBSERVATIONS Free Text/Narrative:: no anesthesia problems
[2017-03-04 10:33] VITALS: BP 115/75
--- NOTE | 2017-03-04 12:34 | CR ---
EXAMINATION: Portable chest radiograph. HISTORY: Port-A-Cath placement. FINDINGS: The trachea is midline. The cardiomediastinal silhouette is within normal limits. No pulmonary infil trates, effusions or or pneumothorax, however the lung apices are not included. A right-sided portac atheter is noted with tip in good position. Osseous structures appear unremarkable. IMPRESSION: Right-sided portacatheter noted with tip in good position.
--- NOTE | 2017-03-04 14:48 | OR ---
SURGEON: RO LAUREN MD DATE OF PROCEDURE: 03/04/2017 PREOPERATIVE DIAGNOSIS: Squamous cell cancer of the tonsil. POSTOPERATIVE DIAGNOSIS: Squamous cell cancer of the tonsil. PROCEDURE PERFORMED: Right internal jugular Port-A-Cath placement. ANESTHESIA: MAC LMA. ESTIMATED BLOOD LOSS: 5 mL. FINDINGS: Placement of right internal jugular Port-A-Cath. COMPLICATIONS: None. 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 He presented to clinic in consultation for both a port and feeding tube placement. Prior to my procedure, the patient underwent tooth extraction during which he lost pulses. The patient underwent CPR with a quick return of a perfusing rhythm. The patient has undergone an extensive cardiac workup to elucidate the inciting factors that cause his pulseless episode. The metal plater concluded that this was secondary to anesthetic and surgical factors. He has cleared the patient to undergo further procedures. I discussed this patient's case with his radiation oncologist, Anesthesiology, and Cardiology. It is felt that he is safe to go forward with a port and feeding tube placement. In order to limit the amount of sedation that the patient will get, we decided to perform the port 1st before attempting the G-tube placement as he will need to undergo general anesthetic with endotracheal tube placement for that procedure. The patient and I discussed his case in length including both procedures. Decision was made to proceed with a Port-A-Cath placement. We discussed the procedure, expected perioperative course, and risks including bleeding, infection, or damage to surrounding structures, including anesthetic risks. The patient verbalized understanding and wishes to proceed. PROCEDURE IN DETAIL: The patient was brought into the operating room and placed on the OR table in supine position. A time-out was completed verifying the patient's name, age, date of , allergies, and procedure to be performed. Monitored anesthesia care was induced and an LMA was placed. An ultrasound was brought in to the field and I identified the vascular anatomy of the right side of the neck. The patient's right IJ appeared widely open and patent. The right neck and chest were then prepped and draped in the usual standard fashion. The ultrasound was covered in a sterile probe cover and I used it to again identify the vascular anatomy of the right side of the neck. The right IJ and right carotids were identified. The area overlying the right internal jugular vein was anesthetized with 0.5% Marcaine plain. I used the remainder of the Marcaine to anesthetize the catheter tract and port site. Using a finder needle and the ultrasound, I obtained access under direct visualization into the right internal jugular vein. A brisk return of venous blood was noted. A guidewire was placed down the finder needle and into the vein. The finder needle was removed and the C-arm was brought in. This verified that the guidewire had been passed down the right internal jugular vein into the superior vena cava. The guidewire was then secured to the drapes. Next, I turned my attention to the right chest wall. A 4 cm incision was made 2 fingerbreadths below the right lateral clavicle on the chest wall using a #15 blade. I then used cautery to dissect down through the subcutaneous tissue to the chest wall, and I made a subcutaneous pocket. The Port-A-Cath tubing was then tunneled up to the guidewire neck site from my site on the chest. I then brought the C-arm back in and dilated the vein over the guidewire using fluoroscopy. The dilator and guidewire were removed leaving the introducer sheath in place in the vein. The catheter tubing was then placed down through the sheath into the chest. The sheath was then broken away and removed from the patient. The C-arm was used to confirm that the catheter tubing was within the SVC. This was pulled back under fluoroscopy to an appropriate position. An x-ray was taken and saved. The catheter tubing was then aspirated with a good return of venous blood. It was trimmed and placed over the Port-A-Cath. The port was then secured to the chest wall in the subcutaneous pocket using 2-0 Prolenes. The pocket was then closed using 3-0 Vicryl in the subcutaneous fat and the skin was closed using running 4-0 Monocryl suture. The insertion site on the neck was closed with interrupted 4-0 Monocryl. The Steri-Strips and sterile dressings were applied. The counts were complete and correct at the end of the case. The patient was taken to the PACU in stable condition. The Port-A-Cath was then accessed in the preop area and locked with heparin. His post operative CXR showed no evidence of pneumothorax or hemothorax. BHANU THAKUR /[id number] MTDD
== END 2017-03-04 10:30 | disposition home or self-care (01) ==
LOC: MW.SDS 06:16
PROVIDERS: ATTEND Surgery
DX: C09.9 Malignant neoplasm of tonsil, unspecified (principal); Z91.013 Allergy to seafood; Z79.2 Long term (current) use of antibiotics; Z79.899 Other long term (current) drug therapy; Z98.890 Other specified postprocedural states; F17.210 Nicotine dependence, cigarettes, uncomplicated; Z78.9 Other specified health status
CPT/HCPCS: 36561; 71010; 76000; J0690; J1642; J2250; J2405; J3010; J7120; 00532; J2704

== ENCOUNTER 2017-03-08 10:08 | Day surgery (SDC) | payer BC ==
[~2017-03-08 10:08] MED LIST changes: -ceFAZolin 1 GM in Premix Bag 1 BAG IV ONE
[2017-03-08] MEDS ORDERED: Propofol 200 MG/20 ML SDV ONE ×2 (11:27→11:42)
[2017-03-08] MEDS ORDERED: Lidocaine 2% 5 ML SDV ONE ×2 (11:27→11:41)
--- NOTE | 2017-03-08 11:29 | PCM.PREANE ---
Preanesthetic Assessment - Anesthesia/Transfusion/Family Hx Anesthesia History: No Prior Anesthesia Type of Anesthesia Reaction: Other (see below) (pulslesss wide complex ( ventricular) tachycardia during teeth extraction.) Family History of Anesthesia Reaction: Yes Transfusion History: No Prior Transfusion(s) Intubation History: Unknown (no history og intubation) - Review of Systems General: No Symptoms Pulmonary: No Symptoms Cardiovascular: No Symptoms Gastrointestinal: Difficulty swallowing Neurological: No Symptoms Other: Reports: None - Physical Assessment Height: 1.75 m Weight: 72.1 kg ASA Class: 3 Mental Status: Alert & Oriented x3 Airway Class: Mallampati = 2 Dentition: Reports: Edentulous Thyro-Mental Finger Breadths: 3 Mouth Opening Finger Breadths: 2 ROM/Head Extension: Full Lungs: Clear to auscultation, Normal respiratory effort Cardiovascular: Regular Rate, Regular Rhythm - Allergies Allergies/Adverse Reactions: Allergies Allergy/AdvReac Type Severity Reaction Status Date / Time shellfish derived Allergy Itching Verified 03/04/17 10:13 - Blood Blood Available: No - Anesthesia Plan Pre-Op Medication Ordered: None - Acknowledgements Anesthesia Type Planned: General Anesthesia Pt an Appropriate Candidate for the Planned Anesthesia: Yes Alternatives and Risks of Anesthesia Discussed w Pt/Guardian: Yes Pt/Guardian Understands and Agrees with Anesthesia Plan: Yes PreAnesthesia Questionnaire HEENT History: Reports: Other (See Below) Other HEENT History: Squamous cell cancer of the tonsill. Uses reading glasses. Cardiovascular History: Reports: Other (See Below) Other Cardiovascular History: hx of cardiac arrythmia/arrest during jaw surgery Respiratory History: Reports: None Other Gastrointestinal History: difficulty eating/swallowing Genitourinary History: Reports: None Musculoskeletal History: Reports: Fracture, Neck Pain, Chronic Other Musculoskeletal History: hx of fx right radius Neurological History: Reports: Concussion Psychiatric History: Reports: Anxiety Other Psychiatric History: anxious over current diagnosis Endocrine/Metabolic History: Reports: None Hematologic History: Reports: None Immunologic History: Reports: None Oncologic (Cancer) History: Reports: Squamous Cell Carcinoma Other Oncologic History: skin cancer removed from left upper chest in the past Dermatologic History: Reports: None - Past Surgical History Head Surgeries/Procedures: Reports: None HEENT Surgical History: Reports: Oral Surgery, Other (See Below) Other HEENT Surgeries/Procedures: total dental extraction with exc. of mandibular cyst 02/15/2017. Cardiovascular Surgical History: Reports: None Respiratory Surgical History: Reports: None GI Surgical History: Reports: None Other GI Surgeries/Procedures: due to oral ca, dental extraction performed Male Surgical History: Reports: None Endocrine Surgical History: Reports: None Neurological Surgical History: Reports: None Musculoskeletal Surgical History: Reports: None Oncologic Surgical History: Reports: None Dermatological Surgical History: Reports: None Other Surgical History Comment: port-a-cath placement last week - SUBSTANCE USE Smoking Status *Q: Current Every Day Smoker Tobacco Use Within Last Twelve Months: Cigarettes Days Per Week of Alcohol Use: 1 Number of Drinks Per Day: 2 Total Drinks Per Week: 2 Recreational Drug Use History: Yes Recreational Drug Type: Reports: Marijuana/Hashish - HOME MEDS Home Medications: Home Meds Gabapentin [Neurontin] 100 mg PO BID 02/11/17 [History] Gabapentin [Neurontin] 300 mg PO BEDTIME 02/11/17 [History] L.acidoph,Paracasei, B.lactis [Probiotic] 1 cap PO DAILY 02/11/17 [History] Multivitamin [Multi-Vitamin Daily] 1 tab PO DAILY 02/11/17 [History] Metoprolol Succinate 25 mg PO DAILY #30 tab.er.24h 02/16/17 [Rx] Docusate Sodium [Colace] 100 mg PO DAILY 03/03/17 [History] Hydrocodone/Acetaminophen [Hydrocodon-Acetaminophn 10-325] 1 tab PO Q4HR PRN 08/10 [History] - CURRENT (IN HOUSE) MEDS Current Meds: Current Medications Lactated Ringer's (Ringers, Lactated) 1,000 mls @ 125 mls/hr IV ASDIRECTED FARZAD Sodium Chloride (Saline Flush) 10 ml FLUSH ASDIRECTED PRN PRN Reason: Keep Vein Open Sodium Chloride (Saline Flush) 2.5 ml FLUSH ASDIRECTED PRN PRN Reason: Keep Vein Open
[2017-03-08] MEDS ORDERED: Lidocaine 1% 20 ML MDV ONE (11:39)
[2017-03-08] MEDS ORDERED: Midazolam 1 MG/ML 2 ML SDV ONE (11:44)
[2017-03-08] MEDS ORDERED: fentaNYL 100 MCG/2 ML SDV ONE (11:44)
[2017-03-08] MEDS ORDERED: Succinylcholine/Normal Saline 200 MG/10 ML Syringe ONE (12:33)
[2017-03-08] MEDS ORDERED: Dexamethasone 4 MG/ML 5 ML MDV ONE (12:33)
--- NOTE | 2017-03-08 12:39 | PCM.OPNOTE ---
- General Post-Op/Procedure Note Date of Surgery/Procedure: 03/08/17 Operative Procedure(s): Percutaneous endoscopic gastrostomy tube placement Findings: Large mass on left side of the neck that made intubation of the endoscope into the esophagus difficult. Endoscope able to be passed safely into the stomach. PEG placed in antrum with skin bumper 3 cm at the skin. Pre Op Diagnosis: Squamous cell tonsilar cancer Post-Op Diagnosis: same Anesthesia Technique: General ET tube Primary Surgeon: Keisha Zuniga Condition: Good
--- NOTE | 2017-03-08 12:55 | PCM.OPNOTE ---
- General Post-Op/Procedure Note Date of Surgery/Procedure: 03/08/17 Operative Procedure(s): EGD for PEG placement Pre Op Diagnosis: Tonsillar Ca--Stage IV. Need for nutrition for upcoming chemoradiotherapy Post-Op Diagnosis: Same Anesthesia Technique: General ET tube (III) Primary Surgeon: Carlos Carlos Secondary Surgeon: Keisha Zuniga Condition: Good Free Text/Narrative:: Dictation [id number]
[2017-03-08] MEDS ORDERED: Racepinephrine 2.25% 0.5 ML Neb Soln NEB ONE (13:04)
[2017-03-08] MEDS ORDERED: Meperidine PF 25 MG/ML Syringe IVPUSH ONE (13:21)
[2017-03-08] MEDS ORDERED: Meperidine PF 50 MG/ML Syringe ONE (13:25)
[2017-03-08] MEDS ORDERED: Meperidine PF 50 MG/ML Syringe IVPUSH ONE (13:30)
--- NOTE | 2017-03-08 14:02 | PCM.POSTAN ---
POST ANESTHESIA ASSESSMENT - MENTAL STATUS Mental Status: alert, oriented - RESPIRATORY Respiratory Status: respiratory rate WNL, airway patent, O2 saturation stable - CARDIOVASCULAR CV Status: pulse rate WNL, blood pressure stable - GASTROINTESTINAL GI Status: no symptoms - POST OP HYDRATION Hydration Status: adequate & stable
[2017-03-08 15:23] VITALS: BP 156/86
--- NOTE | 2017-03-08 21:36 | OR ---
SURGEON: RO LAUREN MD DATE OF PROCEDURE: 03/08/2017 PREOPERATIVE DIAGNOSIS: Squamous cell cancer of the tonsil. POSTOPERATIVE DIAGNOSIS: Squamous cell cancer of the tonsil. PROCEDURE PERFORMED: Percutaneous endoscopic gastrostomy tube placement. CO-SURGEON: Dr. Carlos Carlos. ANESTHESIA: General endotracheal anesthesia. ESTIMATED BLOOD LOSS: 5 mL. FINDINGS: A large mass in the left side of the posterior oropharynx making endoscopy difficult. Endoscope was able to be placed safely down into the stomach. A feeding tube was placed into the antrum. Bumper at the skin at 3 cm. COMPLICATIONS: None. INDICATIONS: The patient is a 51-year-old male with squamous cell cancer of the tonsil. The patient will be undergoing radiation and chemotherapy treatment. The patient will need a feeding access for his time during these treatments. The patient and I discussed PEG placement versus open gastrostomy tube placement. I explained that should we be unable to pass the endoscope past the patient's mass in his posterior oropharynx, we would be performing the tube placement through a traditional open incision. We discussed both procedures as well as expected perioperative course. We discussed the risks including bleeding, infection, and/or damage to surrounding structures including any possible overlying bowel. The patient verbalized understanding and wishes to proceed. PROCEDURE IN DETAIL: The patient was brought into the operating room and placed on the operating room table in supine position. A time-out was completed verifying the patient's name, age, date of , allergies, and procedure to be performed. General endotracheal anesthetic was induced. The abdomen was then prepped and draped in the usual standard fashion. Dr. Carlos Carlos performed the endoscopic portion of this exam. Please see his dictation for details. Once the endoscope was passed into the stomach, the stomach was insufflated. The scope was then brought down into the antrum and pushed up against the anterior antrum to allow transillumination through the abdominal skin. The transillumination was clearly visible and a spot marked on the patient's abdomen. I passed a 22-gauge needle through the abdominal skin into the stomach. The needle was visible in the antrum of the stomach. I then slowly withdrew the needle back while aspirating looking for any air bubbles once the needle had gone past the gastric mucosa and on its way to the abdominal skin. No bubbles were noted. The needle was passed back through this tract and the area anesthetized with 1% lidocaine plain. A finder needle was then passed along this tract into the stomach. The needle was removed and sheath left in place. A guidewire was then placed into the abdomen and grasped with a guidewire that had been passed through the endoscope. This was then pulled up out through the patient's mouth. The feeding tube was then looped around this guidewire and the wire pulled back through the patient's mouth, esophagus, and into the stomach allowing the feeding tube to be pulled down into the stomach. The feeding tube was pulled until the bumper was flush against the gastric mucosa and tied against the skin. The measurement of the feeding tubing at the skin was 3 cm. This allowed sufficient tightness to hold the stomach up against the abdominal wall, but not too tight. The bumper was allowed to be twirled easily without undue tension. The bumper was then placed up against the skin again at 3 cm. A drain gauze was placed underneath the bumper to dress the wound. This feeding tube was then trimmed to size and placed to gravity drainage with a large glove placed over the end of the feeding tube. The patient tolerated the procedure well with no acute complications. Counts were complete and correct at the end of the case. The patient was taken to the postoperative care unit in stable condition. BHANU THAKUR /[id number]
--- NOTE | 2017-03-09 06:23 | OR ---
SURGEON: Carlos Carlos M.D. DATE OF PROCEDURE: 03/08/2017 OPERATION PERFORMED: Endoscopic placement of percutaneous feeding gastrostomy. CO-SURGEON: Dr. Zuniga. ANESTHESIA: General endotracheal. ASA CLASSIFICATION: III. DESCRIPTION OF PROCEDURE: The patient was taken to the operating room, placed on the operating table in the supine position. Time-out was called for appropriate identification of patient and procedure. Following satisfactory attainment of general endotracheal anesthesia, I was able to insert the esophagogastroduodenoscope into the mouth. With great difficulty, we were able to maneuver the gastroscope beyond the oropharyngeal cancer and enter the esophagus. Once we entered the esophagus, scope was easily advanced into the stomach, which was then distended with air. One could see the light reflecting through the abdominal wall. The abdomen was then prepped per Dr. Zuniga's instructions, and that portion of the procedure will be dictated by her. Once the needle was passed into the stomach and removed leaving the sheath, the wire was passed into the stomach and then grasped with the loop snare and brought out through the mouth. The feeding tube was then affixed to the guidewire and slowly and carefully advanced back into the mouth and then into the esophagus back into the stomach. The gastroscope was able to be reinserted and advanced through the esophagus into the stomach to confirm appropriate placement of the feeding tube. Multiple photographs were taken. No biopsies were taken. The gastroscope was then slowly withdrawn and 1 photograph of the large tumor on the left side of his oropharynx was taken. The patient tolerated the procedure well. The remainder of the procedure will be dictated by Dr. Zuniga. EROS / OFE /[id number]
== END 2017-03-08 15:04 | disposition home or self-care (01) ==
LOC: MW.SDS 10:08
PROVIDERS: ATTEND Surgery
DX: C09.9 Malignant neoplasm of tonsil, unspecified (principal); I47.2 Ventricular tachycardia; F17.210 Nicotine dependence, cigarettes, uncomplicated; Z91.013 Allergy to seafood; Z98.890 Other specified postprocedural states
CPT/HCPCS: 43246; J1100; J2175; J2250; J3010; J7120; 00126; J2704

== ENCOUNTER 2018-01-23 05:46 | Emergency (ER) | payer BC ==
[2018-01-23] MEDS ORDERED: Sodium Chloride 0.9% 10 ML Syringe FLUSH PRN (05:51)
[2018-01-23] MEDS ORDERED: Sodium Chloride 0.9% 2.5 ML Syringe FLUSH PRN (05:51)
[2018-01-23] MEDS ORDERED: Sodium Chloride 0.9% 1,000 ML IV ONE (05:52)
[2018-01-23] MEDS ORDERED: Ondansetron 4 MG/2 ML SDV IVPUSH ONE (05:52)
--- NOTE | 2018-01-23 06:09 | EDM.PDOC ---
ED HPI GENERAL MEDICAL PROBLEM - General Stated Complaint: THROWING UP BLOOD Time Seen by Provider: 01/23/18 05:55 Source of Information: Reports: Patient History Limitations: Reports: No Limitations - History of Present Illness INITIAL COMMENTS - FREE TEXT/NARRATIVE: History of present illness: []Patient arrives coughing up copious amount of bright red blood that began prior to arrival. He has a history of throat and neck cancer in 2017 and was treated with radiation. His medical oncologist is in [place], Dr. Olmedo and his radiation oncologist, Dr. Colunga is in [place]. Patient uses a PEG for nutrition but does take meds orally. Patient denies any recent illnesses, vomiting, diarrhea, abdominal pain. Patient states he feels mildly short of breath and states he feels like the bleeding came from his right lung and points to a specific area on his right mid chest. Review of systems: As per history of present illness and below otherwise all systems reviewed and negative. Past medical history: As per history of present illness and as reviewed below otherwise noncontributory. Surgical history: As per history of present illness and as reviewed below otherwise noncontributory. Social history: No reported history of drug or alcohol abuse. Family history: As per history of present illness and as reviewed below otherwise noncontributory. Physical exam: General: Well developed, well nourished in NAD HEENT: Atraumatic, normocephalic, pupils reactive, negative for conjunctival pallor or scleral icterus, mucous membranes moist, throat clear, neck supple, nontender, trachea midline. Right red Blood in his oral cavity and nares him a no stridor Lungs: Clear to auscultation, breath sounds equal bilaterally, chest nontender. No rhonchi or chest wall retractions Heart: S1S2, regular, negative for clicks, rubs, or JVD. Abdomen: Soft, nondistended, nontender. Negative for masses or hepatosplenomegaly. Negative for costovertebral tenderness. Pelvis: Stable nontender. Genitourinary: Deferred. Rectal: Deferred. Extremities: Atraumatic, negative for cords or calf pain. Neurovascular unremarkable. Neuro: Awake, alert, oriented. Cranial nerves II through XII unremarkable. Cerebellum unremarkable. Motor and sensory unremarkable throughout. Exam nonfocal. Diagnostics: []Chest x-ray shows no pneumothoraces or effusion, CBC, CMP, coags pending at this time Therapeutics: []IV fluids, 2 units of O- blood is ordered, Zofran for nausea Impression: []Hemoptysis, history of throat cancer 2017 treated with radiation Plan: []Transfer to [facility] Dr. Best accepts patient will be flown Definitive disposition and diagnosis as appropriate pending reevaluation and review of above. 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 Uses reading glasses. Cardiovascular History: Reports: Other (See Below) Other Cardiovascular History: cardiac problems during last surgery, cleared by Dr. rFeedman Respiratory History: Reports: None Other Gastrointestinal History: difficulty eating/swallowing Genitourinary History: Reports: None Musculoskeletal History: Reports: Fracture, Neck Pain, Chronic Other Musculoskeletal History: hx of fx right radius Neurological History: Reports: Concussion Psychiatric History: Reports: Anxiety Other Psychiatric History: anxious over current diagnosis Endocrine/Metabolic History: Reports: None Hematologic History: Reports: None Immunologic History: Reports: None Oncologic (Cancer) History: Reports: Squamous Cell Carcinoma Other Oncologic History: skin cancer removed from left upper chest in the past Dermatologic History: Reports: None - Past Surgical History Head Surgeries/Procedures: Reports: None HEENT Surgical History: Reports: Oral Surgery, Other (See Below) Other HEENT Surgeries/Procedures: total dental extraction with exc. of mandibular cyst 02/15/2017. Respiratory Surgical History: Reports: None GI Surgical History: Reports: None Other GI Surgeries/Procedures: due to oral ca, dental extraction performed Male Surgical History: Reports: None Endocrine Surgical History: Reports: None Neurological Surgical History: Reports: None Musculoskeletal Surgical History: Reports: None Oncologic Surgical History: Reports: None Dermatological Surgical History: Reports: None Social & Family History - Family History Family Medical History: Noncontributory - Tobacco Use Smoking Status *Q: Current Every Day Smoker Years of Tobacco use: 30 Packs/Tins Daily: 0.7 - Alcohol Use Days Per Week of Alcohol Use: 1 Number of Drinks Per Day: 2 Total Drinks Per Week: 2 - Recreational Drug Use Recreational Drug Use: Yes Drug Use in Last 12 Months: No Recreational Drug Type: Reports: Marijuana/Hashish ED ROS ENT - Review of Systems Review Of Systems: See Below (See history of present illness) ED EXAM, ENT - Physical Exam Exam: See Below (See history of present illness) Course - Vital Signs Last Recorded V/S: Last Vital Signs Temp 97 F 01/23/18 05:54 Pulse 120 H 01/23/18 05:54 Resp 24 H 01/23/18 05:54 BP 115/65 01/23/18 05:54 Pulse Ox 93 L 01/23/18 05:54 - Orders/Labs/Meds Orders: Active Orders 24 hr Category Date Time Status Chest 1V Frontal [CR] Stat Exams 01/23/18 05:52 Taken CBC WITH AUTO DIFF [HEME] Stat Lab 01/23/18 06:06 Received COMPREHENSIVE METABOLIC PN,CMP [CHEM] Stat Lab 01/23/18 06:06 Received INR,PT,PROTHROMBIN TIME [COAG] Stat Lab 01/23/18 06:06 Received PTT,PARTIAL THROMBOPLSTIN TIME [COAG] Stat Lab 01/23/18 06:06 Received RED BLOOD CELLS LP [BBK] Stat Lab 01/23/18 06:06 Received TYPE AND SCREEN [BBK] Stat Lab 01/23/18 06:06 Received Sodium Chloride 0.9% [Normal Saline] 1,000 ml Med 01/23/18 05:52 Active IV .Bolus Sodium Chloride 0.9% [Saline Flush] Med 01/23/18 05:51 Active 10 ml FLUSH ASDIRECTED PRN Sodium Chloride 0.9% [Saline Flush] Med 01/23/18 05:51 Active 2.5 ml FLUSH ASDIRECTED PRN Saline Lock Insert [OM.PC] Stat Oth 01/23/18 05:51 Ordered Transfuse Red Blood Cells [COMM] Stat Oth 01/23/18 05:59 Ordered Medication Orders Sodium Chloride (Normal Saline) 1,000 mls @ 999 mls/hr IV .Bolus ONE Stop: 01/23/18 06:52 Last Admin: 01/23/18 06:11 Dose: 999 mls/hr Sodium Chloride (Saline Flush) 10 ml FLUSH ASDIRECTED PRN PRN Reason: Keep Vein Open Last Admin: 01/23/18 06:01 Dose: 10 ml Sodium Chloride (Saline Flush) 2.5 ml FLUSH ASDIRECTED PRN PRN Reason: Keep Vein Open Last Admin: 01/23/18 06:00 Dose: 2.5 ml Meds: Medications Generic Name Dose Route Start Last Admin Trade Name Freq PRN Reason Stop Dose Admin Sodium Chloride 1,000 mls @ 999 mls/hr 01/23/18 05:52 01/23/18 06:11 Normal Saline IV 01/23/18 06:52 999 mls/hr .Bolus ONE Administration Sodium Chloride 10 ml 01/23/18 05:51 01/23/18 06:01 Saline Flush FLUSH 10 ml ASDIRECTED PRN Administration Keep Vein Open Sodium Chloride 2.5 ml 01/23/18 05:51 01/23/18 06:00 Saline Flush FLUSH 2.5 ml ASDIRECTED PRN Administration Keep Vein Open Discontinued Medications Generic Name Dose Route Start Last Admin Trade Name Freq PRN Reason Stop Dose Admin Ondansetron HCl 4 mg 01/23/18 05:52 01/23/18 06:12 Zofran IVPUSH 01/23/18 05:53 4 mg ONETIME ONE Administration Departure - Departure Time of Disposition: 06:40 Disposition: DC/Tfer to Acute Hospital 02 Condition: Serious Clinical Impression: Hemoptysis - Discharge Information Referrals: PCP,None [Primary Care Provider] - - My Orders Last 24 Hours: My Active Orders 01/23/18 05:51 Sodium Chloride 0.9% [Saline Flush] 10 ml FLUSH ASDIRECTED PRN Sodium Chloride 0.9% [Saline Flush] 2.5 ml FLUSH ASDIRECTED PRN Saline Lock Insert [OM.PC] Stat 01/23/18 05:52 Chest 1V Frontal [CR] Stat Sodium Chloride 0.9% [Normal Saline] 1,000 ml IV .Bolus 01/23/18 05:59 Transfuse Red Blood Cells [COMM] Stat 01/23/18 06:06 CBC WITH AUTO DIFF [HEME] Stat COMPREHENSIVE METABOLIC PN,CMP [CHEM] Stat INR,PT,PROTHROMBIN TIME [COAG] Stat PTT,PARTIAL THROMBOPLSTIN TIME [COAG] Stat RED BLOOD CELLS LP [BBK] Stat TYPE AND SCREEN [BBK] Stat - Assessment/Plan Last 24 Hours: My Active Orders 01/23/18 05:51 Sodium Chloride 0.9% [Saline Flush] 10 ml FLUSH ASDIRECTED PRN Sodium Chloride 0.9% [Saline Flush] 2.5 ml FLUSH ASDIRECTED PRN Saline Lock Insert [OM.PC] Stat 01/23/18 05:52 Chest 1V Frontal [CR] Stat Sodium Chloride 0.9% [Normal Saline] 1,000 ml IV .Bolus 01/23/18 05:59 Transfuse Red Blood Cells [COMM] Stat 01/23/18 06:06 CBC WITH AUTO DIFF [HEME] Stat COMPREHENSIVE METABOLIC PN,CMP [CHEM] Stat INR,PT,PROTHROMBIN TIME [COAG] Stat PTT,PARTIAL THROMBOPLSTIN TIME [COAG] Stat RED BLOOD CELLS LP [BBK] Stat TYPE AND SCREEN [BBK] Stat
[2018-01-23 06:38] LABS: CHLORIDE,CL 100 mmol/L (98-107); SODIUM,NA 139 mmol/L (136-148)
[2018-01-23 06:48] VITALS: BP 102/60
--- NOTE | 2018-01-24 13:19 | CR ---
EXAM DATE: 01/23/18 PATIENT'S AGE: 52 Patient: DAVID ORTEGA Facility: [place], [place] Site . Site : 1965 Study: XRay Chest [id number]/1/2018 6:16:02 AM Ordering Physician: Doctor Gilbert Final Report: Indication: Hematemesis Technique: Chest 1 view Comparison: 03/04/2017 Findings/Impression: Cardiovascular and mediastinum: Heart size and vasculature are normal in caliber and appearance. Mediastinum is within normal limits. Lungs and pleural space: A few apparent faint nodular opacities in the right lower lung, measuring up to 5 millimeters, and a few apparent micronodular opacities in the left lower lung, not seen on the prior. Correlate for an infectious process and followup. If these do not resolve on short term followup , correlate with CT. No pleural effusion. Bones and soft tissues: No significant change. Dictated by Tenzin Hernandez MD @ 01/23/2018 6:26:52 AM Dictated by: Tenzin Hernandez MD @ 01/23/2018 06:27:07 (Electronic Signature) Report Signed by Proxy. JONATHAN
== END 2018-01-23 06:50 ==
LOC: MW.ED 05:46
DX: R04.2 Hemoptysis (principal); Z91.013 Allergy to seafood; Z79.899 Other long term (current) drug therapy; F17.210 Nicotine dependence, cigarettes, uncomplicated
CPT/HCPCS: 36415; 36430; 71045; 80053; 85025; 85610; 85730; 86850; 86900; 86901; 86920; 86921; 86922; 96361; 96374; 99285; J2405; J7040; P9016; 99284

== ENCOUNTER 2018-01-29 19:42 | Emergency (ER) | payer BC ==
[2018-01-29] MEDS ORDERED: Sodium Chloride 0.9% 1,000 ML IV ONE (19:56)
[2018-01-29] MEDS ORDERED: Ondansetron 4 MG/2 ML SDV IVPUSH ONE (19:56)
--- NOTE | 2018-01-29 19:57 | EDM.PDOC ---
ED HPI GENERAL MEDICAL PROBLEM - General Chief Complaint: Gastrointestinal Problem Stated Complaint: PT HAS STOMACH PAINS Time Seen by Provider: 01/29/18 19:57 Source of Information: Reports: Patient - History of Present Illness INITIAL COMMENTS - FREE TEXT/NARRATIVE: HISTORY AND PHYSICAL: History of present illness: [Patient with history of stage IV cancer which is apparently a squamous cell carcinoma that initially involved his left tonsil has undergone chemotherapy and radiation the last treatments were one year prior. He has chronic pain and has been on fentanyl and Christiana, currently he takes Christiana once every 4 hours however over the last 2 days he has not taken any on arrival he as 10 out of 10 epigastric region pain, he has a history of reflux currently no fever vomiting chills sweats no chest pain shortness of breath headache dizziness or palpitation no bowel or urine symptoms ] patient had recent transfer to [place] due to GI bleeding patient states he was evaluated by ENT who did not find any abnormality, is planning to follow with GI specialists out of [place] clinic hemoglobin is stable over the last several days Review of systems: As per history of present illness and below otherwise all systems reviewed and negative. Past medical history: As per history of present illness and as reviewed below otherwise noncontributory. Surgical history: As per history of present illness and as reviewed below otherwise noncontributory. Social history: No reported history of drug or alcohol abuse. Family history: As per history of present illness and as reviewed below otherwise noncontributory. Physical exam: HEENT: Atraumatic, normocephalic, pupils reactive, negative for conjunctival pallor or scleral icterus, mucous membranes moist, throat clear, neck supple, nontender, trachea midline. Lungs: Clear to auscultation, breath sounds equal bilaterally, chest nontender. Heart: S1S2, regular, negative for clicks, rubs, or JVD. Abdomen: Soft, nondistended, nontender. Negative for masses or hepatosplenomegaly. Negative for costovertebral tenderness. patent tube noted Pelvis: Stable nontender. Genitourinary: Deferred. Rectal: Deferred. Extremities: Atraumatic, negative for cords or calf pain. Neurovascular unremarkable. Neuro: Awake, alert, oriented. Cranial nerves II through XII unremarkable. Cerebellum unremarkable. Motor and sensory unremarkable throughout. Exam nonfocal. Diagnostics: [ CBC CMP troponin amylase lipase EKG Chest [address] abdomen pelvis with contrast Ultrasound right upper quadrant ] Therapeutics: [1 L normal saline Zofran 8 mg IV Morphine 2 mg IV Dilaudid 1 mg IV Proton X 80 mg IV ] Impression: [ epigastric pain- resolved with above treatment, patient offered admission a declines he prefers to go home pain is 0 out of 10 at current Cholelithiasis Possible biliary colic Chronic history of baseline ] Definitive disposition and diagnosis as appropriate pending reevaluation and review of above. 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 Uses reading glasses. Cardiovascular History: Reports: Other (See Below) Other Cardiovascular History: cardiac problems during last surgery, cleared by Dr. Freedman Respiratory History: Reports: None Other Gastrointestinal History: difficulty eating/swallowing Genitourinary History: Reports: None Musculoskeletal History: Reports: Fracture, Neck Pain, Chronic Other Musculoskeletal History: hx of fx right radius Neurological History: Reports: Concussion Psychiatric History: Reports: Anxiety Other Psychiatric History: anxious over current diagnosis Endocrine/Metabolic History: Reports: None Hematologic History: Reports: None Immunologic History: Reports: None Oncologic (Cancer) History: Reports: Squamous Cell Carcinoma Other Oncologic History: skin cancer removed from left upper chest in the past Dermatologic History: Reports: None - Infectious Disease History Infectious Disease History: Reports: Chicken Pox, Measles, Mumps - Past Surgical History Head Surgeries/Procedures: Reports: None HEENT Surgical History: Reports: Oral Surgery, Other (See Below) Other HEENT Surgeries/Procedures: total dental extraction with exc. of mandibular cyst 02/15/2017. Respiratory Surgical History: Reports: None GI Surgical History: Reports: None Other GI Surgeries/Procedures: due to oral ca, dental extraction performed Male Surgical History: Reports: None Endocrine Surgical History: Reports: None Neurological Surgical History: Reports: None Musculoskeletal Surgical History: Reports: None Oncologic Surgical History: Reports: None Dermatological Surgical History: Reports: None Social & Family History - Family History Family Medical History: Noncontributory - Tobacco Use Smoking Status *Q: Current Every Day Smoker Years of Tobacco use: 30 Packs/Tins Daily: 0.7 - Caffeine Use Caffeine Use: Reports: Coffee - Alcohol Use Days Per Week of Alcohol Use: 1 Number of Drinks Per Day: 2 Total Drinks Per Week: 2 - Recreational Drug Use Recreational Drug Use: Yes Drug Use in Last 12 Months: No Recreational Drug Type: Reports: Marijuana/Hashish ED ROS GENERAL - Review of Systems Review Of Systems: ROS reveals no pertinent complaints other than HPI. ED EXAM, GENERAL - Physical Exam Exam: See Below Course - Vital Signs Last Recorded V/S: Last Vital Signs Temp 98.6 F 01/29/18 23:32 Pulse 90 01/29/18 23:32 Resp 18 01/29/18 23:32 BP 112/67 01/29/18 23:32 Pulse Ox 96 01/29/18 23:32 - Orders/Labs/Meds Orders: Active Orders 24 hr Category Date Time Status Abdomen Ltd [US] Stat Exams 01/29/18 21:50 Taken Abdomen Pelvis w Cont [CT] Stat Exams 01/29/18 20:06 Taken Labs: Laboratory Tests 01/29/18 01/29/18 Range/Units 20:08 20:08 WBC 9.54 (4.0-11.0) K/uL RBC 4.33 L (4.50-5.90) M/uL Hgb 12.5 L (13.0-17.0) g/dL Hct 37.0 L (38.0-50.0) % MCV 85.5 (80.0-98.0) fL MCH 28.9 (27.0-32.0) pg MCHC 33.8 (31.0-37.0) g/dL RDW Std Deviation 41.4 (28.0-62.0) fl RDW Coeff of Lakisha 13 (11.0-15.0) % Plt Count 255 (150-400) K/uL MPV 9.70 (7.40-12.00) fL Add Manual Diff YES Neutrophils % (Manual) 75 (48.0-80.0) % Band Neutrophils % 3 % Lymphocytes % (Manual) 15 L (16.0-40.0) % Monocytes % (Manual) 6 (0.0-15.0) % Eosinophils % (Manual) 1 (0.0-7.0) % Nucleated RBC % 0.0 /100WBC Absolute Seg Neuts 7.2 H (1.4-5.7) Band Neutrophils # 0.3 Lymphocytes # (Manual) 1.4 (0.6-2.4) Monocytes # (Manual) 0.6 (0.0-0.8) Eosinophils # (Manual) 0.1 (0.0-0.7) Nucleated RBCs # 0 K/uL Sodium 135 L (136-148) mmol/L Potassium 3.7 (3.5-5.1) mmol/L Chloride 98 (98-107) mmol/L Carbon Dioxide 25.7 (21.0-32.0) mmol/L BUN 19 H (7.0-18.0) mg/dL Creatinine 1.0 (0.8-1.3) mg/dL Est Cr Clr Drug Dosing TNP Estimated GFR (MDRD) > 60.0 ml/min Glucose 154 H (74-106) mg/dL Calcium 9.4 (8.5-10.1) mg/dL Total Bilirubin 0.7 (0.2-1.0) mg/dL AST 16 (15-37) IU/L ALT 24 (14-63) IU/L Alkaline Phosphatase 80 (46-116) U/L Troponin I < 0.050 (0.000-0.056) ng/mL Total Protein 8.0 (6.4-8.2) g/dL Albumin 3.7 (3.4-5.0) g/dL Globulin 4.3 H (2.0-3.5) g/dL Albumin/Globulin Ratio 0.9 L (1.3-2.8) Amylase 24 L (25-115) U/L Lipase 108 (73-393) U/L Meds: Medications Discontinued Medications Generic Name Dose Route Start Last Admin Trade Name Freq PRN Reason Stop Dose Admin Hydromorphone HCl 1 mg 01/29/18 20:51 01/29/18 20:59 Dilaudid IVPUSH 01/29/18 20:52 1 mg ONETIME ONE Administration Sodium Chloride 1,000 mls @ 999 mls/hr 01/29/18 19:56 01/29/18 20:15 Normal Saline IV 01/29/18 20:56 999 mls/hr STAT ONE Administration Iopamidol 100 ml 01/29/18 21:22 01/29/18 21:24 Isovue-370 (76%) IVPUSH 01/29/18 21:23 100 ml ONETIME STA Administration Morphine Sulfate 2 mg 01/29/18 19:59 01/29/18 20:17 Morphine IVPUSH 01/29/18 20:00 2 mg ONETIME ONE Administration Ondansetron HCl 8 mg 01/29/18 19:56 01/29/18 20:16 Zofran IVPUSH 01/29/18 19:57 8 mg ONETIME ONE Administration Pantoprazole Sodium 80 mg 01/29/18 21:24 01/29/18 21:39 Protonix Iv IVPUSH 01/29/18 21:25 80 mg .BOLUS ONE Administration Departure - Departure Time of Disposition: 01:00 Disposition: Home, Self-Care 01 Condition: Good Clinical Impression: Abdominal pain - Discharge Information Referrals: PCP,None [Primary Care Provider] - Forms: ED Department Discharge Additional Instructions: Continue current medications as directed Return if symptoms persist or worsen Follow-up with primary care in 2 weeks Consider GI specialist follow-up With history of cholelithiasis will have you follow-up with general surgery to evaluate biliary colic as a potential cause [facility] - General Surgery [address], [address] [place] [address] The following information is given to patients seen in the emergency department who are being discharged to home. This information is to outline your options for follow-up care. We provide all patients seen in our emergency department with a follow-up referral. The need for follow-up, as well as the timing and circumstances, are variable depending upon the specifics of your emergency department visit. If you don't have a primary care physician on staff, we will provide you with a referral. We always advise you to contact your personal physician following an emergency department visit to inform them of the circumstance of the visit and for follow-up with them and/or the need for any referrals to a consulting specialist. The emergency department will also refer you to a specialist when appropriate. This referral assures that you have the opportunity for follow-up care with a specialist. All of these measure are taken in an effort to provide you with optimal care, which includes your follow-up. Under all circumstances we always encourage you to contact your private physician who remains a resource for coordinating your care. When calling for follow-up care, please make the office aware that this follow-up is from your recent emergency room visit. If for any reason you are refused follow-up, please contact the [facility] emergency department at and asked to speak to the emergency department charge nurse. - My Orders Last 24 Hours: My Active Orders 01/29/18 20:06 Abdomen Pelvis w Cont [CT] Stat 01/29/18 21:50 Abdomen Ltd [US] Stat - Assessment/Plan Last 24 Hours: My Active Orders 01/29/18 20:06 Abdomen Pelvis w Cont [CT] Stat 01/29/18 21:50 Abdomen Ltd [US] Stat
[2018-01-29] MEDS ORDERED: Morphine 4 MG/ML Syringe IVPUSH ONE (19:59)
[2018-01-29 20:51] LABS: CHLORIDE,CL 98 mmol/L (98-107); SODIUM,NA 135 mmol/L (136-148)
[2018-01-29] MEDS ORDERED: HYDROmorphone 2 MG/ML SDV IVPUSH ONE (20:51)
[2018-01-29] MEDS ORDERED: Iopamidol 755 Mg/ML 100 ML Bottle IVPUSH STA (21:22)
[2018-01-29] MEDS ORDERED: Pantoprazole 40 MG Vial IVPUSH ONE (21:24)
[2018-01-30 01:13] VITALS: BP 117/67
--- NOTE | 2018-01-31 13:27 | CT ---
EXAM DATE: 01/29/18 PATIENT'S AGE: 52 Patient: DAVID ORTEGA Facility: [place], [place] Site . Site : 1965 Study: CT Abdomen/Pelvis WITH [id number]/7/2018 9:27:17 PM Ordering Physician: Doctor Gilbert Final Report: INDICATION: Generalized abdominal pain with nausea and vomiting. History of head and neck cancer. TECHNIQUE: CT abdomen and pelvis acquired with i.v. 100 mL Isovue 370. Coronal and sagittal reformats were obtained. COMPARISON: None FINDINGS: Outside Operator CT images: Nonobstructive bowel gas pattern. Gastric tube noted in the left upper abdomen. Lower chest: Emphysematous changes. Nodular opacification in the posterior right lower lobe on series 201, image 12, consider small area of infectious or inflammatory etiology, including round atelectasis. Liver: Unremarkable. Spleen: Coarse splenic calcifications, indicating prior granulomatous infection. Splenic size normal. Pancreas: Unremarkable. Gallbladder and bile ducts: No radiopaque gallstones or abnormal biliary dilatation. Subjective thickening of the gallbladder wall with possible minimal fat stranding adjacent to the gallbladder. Kidneys: Unremarkable. No kidney or ureteral stones and no hydronephrosis seen. Adrenal glands: Unremarkable. GI tract: Gastric tube. In satisfactory position. Loops of bowel are normal in caliber. No acute inflammatory changes involving the large bowel. Vascular: Portal vein branches, splenic vein, SMV patent. Iliac veins and IVC are patent. No abdominal aortic aneurysm. Origins of celiac artery and SMA are patent. No abnormal twisting of the mesenteric vessels. Lymph nodes: Unremarkable. Miscellaneous: Unremarkable. No pneumoperitoneum is seen. No significant ascites is noted. Pelvic Organs: Unremarkable. Bones: Unremarkable for age. IMPRESSION: 1. Possible gallbladder wall thickening with trace amount of fat stranding. No radiopaque gallstones or abnormal biliary dilatation. Consider targeted right upper quadrant abdominal ultrasound and correlation with laboratory markers to exclude acute cholecystitis. 2. Focal inflammatory or infectious process in the posterior right lower lobe, series 201, image 12. Recommend short interval followup in 4-6 weeks. Dictated by Ari Cotton MD @ 01/29/2018 9:46:54 PM Dictated by: Ari Cotton MD @ 01/29/2018 21:47:08 (Electronic Signature) Patient: DAVID ORTEGA Facility: [place], [place] Site . Site : 1965 Study: CT Abdomen/Pelvis WITH [id number]/7/2018 9:27:23 PM Ordering Physician: Doctor Gilbert Final Report: INDICATION: Generalized abdominal pain, nausea and vomiting. History of head neck cancer. TECHNIQUE: Volumetric helical scanning of the abdomen and pelvis was performed with 100 cc of Isovue 370 contrast material IV. Coronal and sagittal reconstructions were obtained. COMPARISON: None. FINDINGS: There is no evidence of bowel obstruction or inflammation. A normal appendix is noted. A gastrostomy tube is present. Sigmoid diverticulosis is demonstrated. There is no evidence of diverticulitis. The bowel is otherwise unremarkable. No free fluid or free air is demonstrated. The liver is normal in size, shape and attenuation. The gallbladder is borderline hydropic. No bile duct dilation is evident. The spleen is within normal limits. The adrenal glands are unremarkable. The pancreas is within normal limits. The kidneys are unremarkable. No lymphadenopathy is evident. The prostate is mildly enlarged. Rounded atelectasis is present in the posteromedial right lower lobe base. Subtle nodular infiltrates are also demonstrated in the lower lobe bases. The heart is normal in size. IMPRESSION: 1. Rounded atelectasis in the posteromedial right lower lobe base and subtle nodular infiltrates in both lower lobe bases. 2. Borderline hydropic gallbladder. 3. Sigmoid diverticulosis but no evidence of diverticulitis. 4. Gastrostomy tube in place, properly positioned. 5. Mild prostate enlargement. Please note that all CT scans at this facility use dose modulation, iterative reconstruction, and/or weight-based dosing when appropriate to reduce radiation dose to as low as reasonably achievable. Dictated by Clint Marin MD @ Jan 29 2018 9:46PM (Electronic Signature) Report Signed by Proxy. JONATHAN
--- NOTE | 2018-01-31 13:33 | US ---
EXAM DATE: 01/29/18 PATIENT'S AGE: 52 Patient: DAVID ORTEGA Facility: [place], [place] Site . Site : 1965 Study: US Abdomen [id number]/7/2018 10:29:34 PM Ordering Physician: Tae Dickerson Final Report: INDICATION: Abdominal pain. TECHNIQUE: Ultrasound abdomen limited. Sonographic images of the right upper quadrant were obtained using castellon-scale and color Doppler images. COMPARISON: None. FINDINGS: Liver: Normal in size and echotexture. No masses. No intrahepatic biliary dilatation. Gallbladder: Multiple gallbladder stones are present. No sign of gallbladder wall thickening or pericholecystic fluid. Common bile duct: 3 mm. Pancreas: Unremarkable. Right kidney: Normal in size. Normal echotexture and cortex. No masses, stones, or hydronephrosis. Vasculature: Proximal abdominal aorta and IVC are normal. IMPRESSION: Cholelithiasis without further evidence of cholecystitis. The remainder of the exam is unremarkable. Dictated by Haroldo Contreras MD @ Jan 29 2018 10:35PM (Electronic Signature) Report Signed by Proxy. [facility]
== END 2018-01-30 01:15 | disposition home or self-care (01) ==
LOC: MW.ED 19:42
DX: K80.20 Calculus of gallbladder without cholecystitis without obstruction (principal); F17.210 Nicotine dependence, cigarettes, uncomplicated; Z91.013 Allergy to seafood; Z79.899 Other long term (current) drug therapy; Z85.818 Personal history of malignant neoplasm of other sites of lip, oral cavity, and pharynx
CPT/HCPCS: 36415; 74177; 76705; 80053; 82150; 83690; 84484; 85025; 96361; 96374; 96375; 99284; C9113; J1170; J1642; J2270; J2405; J7040; Q9967; 99283

== ENCOUNTER 2019-01-25 06:30 | Day surgery (SDC) | payer BC ==
[~2019-01-25 06:30] MED LIST changes: +Sodium Chloride 0.9% 10 ML SDV IV PRN
[2019-01-25] MEDS ORDERED: Midazolam 1 MG/ML 2 ML SDV ONE (07:00)
[2019-01-25] MEDS ORDERED: Propofol 200 MG/20 ML SDV ONE (07:00)
[2019-01-25] MEDS ORDERED: Lidocaine 2% 5 ML SDV ONE (07:00)
[2019-01-25] MEDS ORDERED: fentaNYL 100 MCG/2 ML SDV ONE (07:00)
--- NOTE | 2019-01-25 07:13 | PCM.PREANE ---
Preanesthetic Assessment - Anesthesia/Transfusion/Family Hx Anesthesia History: Prior Anesthesia Without Reaction Other Type of Anesthesia Reaction Comment: NSVT during dental surgery, neg cardiac workup Family History of Anesthesia Reaction: No Transfusion History: Prior Transfusion Without Reaction Intubation History: Unknown (no history og intubation) - Review of Systems General: No Symptoms Pulmonary: No Symptoms Gastrointestinal: No Symptoms Neurological: No Symptoms Other: Reports: None - Physical Assessment NPO Status Date: 01/24/19 Height: 5 ft 9 in Weight: 71.214 kg ASA Class: 2 Mental Status: Alert & Oriented x3 Airway Class: Mallampati = 3 Dentition: Reports: Edentulous ROM/Head Extension: Full Lungs: Clear to Auscultation, Normal Respiratory Effort Cardiovascular: Regular Rate, Regular Rhythm - Allergies Allergies/Adverse Reactions: Allergies Allergy/AdvReac Type Severity Reaction Status Date / Time shellfish derived Allergy Itching Verified 01/20/19 08:00 - Blood Blood Available: No - Anesthesia Plan Pre-Op Medication Ordered: None - Acknowledgements Anesthesia Type Planned: MAC Pt an Appropriate Candidate for the Planned Anesthesia: Yes Alternatives and Risks of Anesthesia Discussed w Pt/Guardian: Yes Pt/Guardian Understands and Agrees with Anesthesia Plan: Yes PreAnesthesia Questionnaire HEENT History: Reports: Other (See Below) Other HEENT History: Squamous cell cancer of the tonsill. Uses reading glasses. , has dentures but does not wear them Cardiovascular History: Reports: Other (See Below) Other Cardiovascular History: cardiac problems during oral surgery, "woke up in ICU", was seen by Dr. Shrestha in 2017, "everything was good", has preop appt with Dr. Baca on wednesday01/23/19 Respiratory History: Reports: Sleep Apnea, Other (See Below) Other Respiratory History: Pulmonary Emphysema Gastrointestinal History: Reports: GERD, GI Bleed Other Gastrointestinal History: GI bleed 2 weeks following throat Bx in [place] , was sent to [place] and had blood transfusion Genitourinary History: Reports: None Musculoskeletal History: Reports: Fracture, Other (See Below) Other Musculoskeletal History: hx of fx right radius Neurological History: Reports: Concussion Psychiatric History: Reports: Anxiety Endocrine/Metabolic History: Other Endocrine/Metabolic History: 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, on no meds Hematologic History: Reports: Blood Transfusion(s) Immunologic History: Reports: None Oncologic (Cancer) History: Reports: Squamous Cell Carcinoma, Other (See Below) Other Oncologic History: skin cancer removed from left upper chest, squamous cell carcinoma of left tonsill Dermatologic History: Reports: Other (See Below) Other Dermatologic History: dry itchy skin - Infectious Disease History Infectious Disease History: Reports: Chicken Pox, Measles, Mumps - Past Surgical History Head Surgeries/Procedures: Reports: None HEENT Surgical History: Reports: Oral Surgery, Other (See Below) Other HEENT Surgeries/Procedures: total dental extraction with exc. of mandibular cyst 02/15/2017. hx throat Bx Cardiovascular Surgical History: Reports: None Respiratory Surgical History: Reports: None GI Surgical History: Reports: Other (See Below) Other GI Surgeries/Procedures: difficulty swallowing has Peg Tube Male Surgical History: Reports: None Endocrine Surgical History: Reports: None Neurological Surgical History: Reports: None Musculoskeletal Surgical History: Reports: None Oncologic Surgical History: Reports: None Dermatological Surgical History: Reports: Skin Biopsy - SUBSTANCE USE Smoking Status *Q: Current Every Day Smoker Tobacco Use Within Last Twelve Months: Cigarettes Recreational Drug Use History: No - HOME MEDS Home Medications: Home Meds Hydrocodone/Acetaminophen [Hydrocodon-Acetaminophn 10-325] 1 tab PEGTUBE Q4HR PRN 03/03/17 [History] ALPRAZolam [Xanax] 1 tab PEGTUBE ASDIRECTED PRN 01/20/19 [History] Esomeprazole Magnesium 1 tab PEGTUBE DAILY 01/20/19 [History] Nutritional Supplement [Nutren 1.5] 1 dose PEGTUBE TID 01/20/19 [History] Vitamin E 1 tab PEGTUBE DAILY 01/20/19 [History] - CURRENT (IN HOUSE) MEDS Current Meds: Current Medications Cefazolin Sodium (Ancef) 1 gm IM ONETIME ONE Stop: 01/25/19 09:01 Lactated Ringer's (Ringers, Lactated) 1,000 mls @ 125 mls/hr IV ASDIRECTED FARZAD Sodium Chloride (Saline Flush) 10 ml FLUSH ASDIRECTED PRN PRN Reason: Keep Vein Open Sodium Chloride (Saline Flush) 2.5 ml FLUSH ASDIRECTED PRN PRN Reason: Keep Vein Open Sodium Chloride (Normal Saline) 10 ml IV ASDIRECTED PRN PRN Reason: IV Use Discontinued Medications Fentanyl (Sublimaze) Confirm Administered Dose 100 mcg .ROUTE .STK-MED ONE Stop: 01/25/19 07:01 Lidocaine (Xylocaine-Mpf 2%) Confirm Administered Dose 5 ml .ROUTE .STK-MED ONE Stop: 01/25/19 07:01 Midazolam HCl (Versed 1 Mg/Ml) Confirm Administered Dose 2 mg .ROUTE .STK-MED ONE Stop: 01/25/19 07:01 Propofol (Diprivan 20 Ml) Confirm Administered Dose 400 mg .ROUTE .STK-MED ONE Stop: 01/25/19 07:01
[2019-01-25] MEDS ORDERED: Bupivacaine 0.5% 10 ML SDV ONE (07:25)
[2019-01-25] MEDS ORDERED: Lidocaine 1% 20 ML MDV ONE (07:26)
[2019-01-25] MEDS ORDERED: Sodium Chloride 0.9% 20 ML ONE (07:47)
[2019-01-25] MEDS ORDERED: ceFAZolin 1 GM Vial ONE (07:47)
--- NOTE | 2019-01-25 08:14 | PCM.OPNOTE ---
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
[2019-01-25 08:36] VITALS: BP 106/61
--- NOTE | 2019-01-25 08:38 | PCM.POSTAN ---
POST ANESTHESIA ASSESSMENT - MENTAL STATUS Mental Status: Alert, Oriented - RESPIRATORY Respiratory Status: Respiratory Rate WNL, Airway Patent, O2 Saturation Stable - CARDIOVASCULAR CV Status: Pulse Rate WNL, Blood Pressure Stable - GASTROINTESTINAL GI Status: No Symptoms - POST OP HYDRATION Hydration Status: Adequate & Stable
--- NOTE | 2019-01-25 08:39 | PCM48HPAN ---
Post Anesthesia Note - EVALUATION WITHIN 48HRS OF ANESTHETIC Vital Signs in Normal Range: Yes Patient Participated in Evaluation: Yes Respiratory Function Stable: Yes Airway Patent: Yes Cardiovascular Function Stable: Yes Hydration Status Stable: Yes Pain Control Satisfactory: Yes Nausea and Vomiting Control Satisfactory: Yes Mental Status Recovered: Yes Resp Rate: 16
[2019-01-25] MEDS ORDERED: ceFAZolin 1 GM Vial IM ONE (09:00)
--- NOTE | 2019-01-25 17:48 | OR ---
SURGEON: RO LAUREN MD DATE OF PROCEDURE: 01/25/2019 PREOPERATIVE DIAGNOSIS: Port-A-Cath in place. POSTOPERATIVE DIAGNOSIS: Port-A-Cath in place. PROCEDURE PERFORMED: Right internal jugular Port-A-Cath removal. ANESTHESIA: MAC, local. FLUIDS: See Anesthesia record. ESTIMATED BLOOD LOSS: 5 mL. FINDINGS: Intact right internal jugular Port-A-Cath. COMPLICATIONS: None. INDICATIONS: The patient is a 53-year-old male with a history of squamous cell carcinoma of the pharynx. He had a Port-A-Cath placed for chemotherapy. He has completed chemotherapy and is currently cancer-free. The decision was made to remove the port. I explained the procedure, expected perioperative course, and risks including bleeding, infection, or damage to surrounding structures. The patient verbalized understanding and wishes to proceed. PROCEDURE IN DETAIL: The patient was brought into the OR and placed on the OR table in supine position. A time-out was completed verifying the patient's name, age, date of , allergies, and procedure to be performed. Monitored anesthesia care was induced. The right chest and neck were prepped and draped in usual standard fashion. Once adequate anesthesia was achieved, I anesthetized the area overlying the Port-A-Cath device in the right chest with 0.5% Marcaine plain. A 15 blade was then used to open up his previous incision. Electrocautery was used to dissect down to level of the scar capsule. The scar capsule was taken down using Jaimes scissors and electrocautery. The stay sutures that were placed were removed and passed off the field. Once the port device was completely freed from the surrounding tissue, gentle pressure was applied, and I removed the catheter tubing from the internal jugular vein. Pressure was held at this area for over a minute. There was no evidence of a hematoma at the neck insertion site and there was no evidence of oozing from the chest wall site. Hemostasis was achieved in the wound using electrocautery. I closed the wound using interrupted 3-0 Vicryl's in the subcutaneous fat layer and closed the skin with a running 4-0 Monocryl stitch. Steri-Strips and sterile dressings were applied. The patient tolerated the procedure well and was taken to PACU in stable condition. BHANU THAKUR /[id number]
== END 2019-01-25 08:45 | disposition home or self-care (01) ==
LOC: MW.SDS 06:30
PROVIDERS: ATTEND Surgery
DX: Z45.2 Encounter for adjustment and management of vascular access device (principal); C09.9 Malignant neoplasm of tonsil, unspecified; F17.210 Nicotine dependence, cigarettes, uncomplicated; Z79.899 Other long term (current) drug therapy; Z91.013 Allergy to seafood
CPT/HCPCS: 36590; J0690; J2001; J2250; J2704; J3010; J3490; J7120

== ENCOUNTER 2021-10-19 22:32 | Emergency (ER) | payer MEDICARE ==
--- NOTE | 2021-10-19 22:37 | EDM.PDOC ---
<ChristianokalyanimargueriteEverardo A - Last Filed: 10/20/21 05:53> ED HPI GENERAL MEDICAL PROBLEM - General Chief Complaint: Abdominal Pain Stated Complaint: VOMITTING BLOOD Time Seen by Provider: 10/19/21 22:33 Source of Information: Reports: Patient History Limitations: Reports: No Limitations - History of Present Illness INITIAL COMMENTS - FREE TEXT/NARRATIVE: 56M PMHx primary oral squamous cell carcinoma, h/o GIB, anxiety, cholelithiasis presents for hematemesis. Patient notes that he has been feeling sick to his stomach for the last several days. He saw his primary care physician on Wednesday and had labs done revealing elevated LFTs. Patient notes history of cholelithiasis but still has gallbladder. This evening he began to develop worsening pain in his midepigastrium and upper abdomen associated with multiple episodes of bloody emesis. Patient also notes some blood in his PEG tube. Patient does not eat anything by mouth. He notes that he had a similar episode a few years ago. Source of bleeding was never identified. He did have an endoscopy at that time. He is not on any blood thinners. He notes that he is currently not on chemotherapy or radiation, last dose in 2017. Abdomen Pain Score (Numeric/FACES): 10 - Related Data Allergies Allergy/AdvReac Type Severity Reaction Status Date / Time shellfish derived Allergy Itching Verified 10/19/21 22:43 Home Meds: Home Meds Hydrocodone/Acetaminophen [Hydrocodone-Acetamin 10-325 mg] 1 tab PEGTUBE Q4HR PRN 03/03/17 [History] ALPRAZolam [Xanax] 1 tab PEGTUBE ASDIRECTED PRN 01/20/19 [History] Esomeprazole Magnesium 1 tab PEGTUBE DAILY 01/20/19 [History] Nutritional Supplement [Nutren 1.5] 1 dose PEGTUBE TID 01/20/19 [History] Vitamin E 1 tab PEGTUBE DAILY 01/20/19 [History] Past Medical History HEENT History: Reports: Other (See Below) Other HEENT History: Squamous cell cancer of the tonsill. Uses reading glasses., has dentures but does not wear them Cardiovascular History: Reports: Other (See Below) Other Cardiovascular History: cardiac problems during oral surgery, "woke up in ICU", was seen by Dr. Shrestha in 2017, "everything was good", has preop appt with Dr. 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 of mandibular cyst 02/15/2017. hx throat Bx GI Surgical History: Reports: Other (See Below) Other GI Surgeries/Procedures: difficulty swallowing has Peg Tube Dermatological Surgical History: Reports: Skin Biopsy Social & Family History - Family History Family Medical History: No Pertinent Family History - Caffeine Use Caffeine Use: Reports: Coffee ED ROS GENERAL - Review of Systems Review Of Systems: Comprehensive ROS is negative, except as noted in HPI. ED EXAM, GENERAL - Physical Exam Exam: See Below Exam Limited By: No Limitations General Appearance: Alert, WD/WN, No Apparent Distress Ears: Hearing Grossly Normal Throat/Mouth: Normal Voice, No Airway Compromise Head: Atraumatic, Normocephalic Respiratory/Chest: No Respiratory Distress, Lungs Clear, Normal Breath Sounds, No Accessory Muscle Use Cardiovascular: Normal Peripheral Pulses, Tachycardia GI/Abdominal: Soft, Other (upper abdominal TTP without guarding; PEG tube well appearing but does have brown liquid concerning for blood) Extremities: Normal Inspection Neurological: Alert, Normal Cognition, Normal Gait Psychiatric: Normal Affect, Normal Mood Skin Exam: Warm, Dry, Intact, Normal Color #1 Interpretation EKG Date: 10/19/21 Time: 22:55 Rhythm: NSR Rate (Beats/Min): 112 [place]: Normal P-Wave: Present QRS: Normal ST-T: Normal QT: Normal IL/PQ Interval: 160 EKG Interpretation Comments: STD in II, III, aVF, no BRIDGET Course - Re-Assessments/Exams Free Text/Narrative Re-Assessment/Exam: 10/19/21 23:32 Patient with elevated LFTs, leukocytosis. He is not anemic. Lipase elevated. Concern for cholangitis. Will give Zosyn and second liter IV fluid bolus. Will get blood cultures. We will follow up CT imaging. 10/20/21 01:10 CT imaging reveals peripancreatic edema consistent with acute pancreatitis, enl arged CBD at 9mm suspicious for distal obstruction, and biliary sludge without evidence of cholecystitis. Findings consistent with choledocholithiasis. Patient requests transfer of care to [facility] if beds are available. 10/20/21 01:[address] [facility] or [facility]. 10/20/21 01:19 [facility] does have beds available but patient cannot be safely transported 2/2 weather until the morning. They recommend calling in the morning. They will have beds available. 10/20/21 01:26 Patient informed of the delay; he is agreeable to wait in ER overnight until he can be safely transported to [facility]. He is agreeable to transfer to [facility]. 10/20/21 07:00 Patient care signed out to day-team ED physician pending transfer of care. Anticipated to transfer care to [facility]. Departure - Departure Disposition: DC/Tfer to Acute Hospital 02 Condition: Fair Clinical Impression: Choledocholithiasis - Discharge Information Referrals: David Laguna MD [Primary Care Provider] - Forms: ED Department Discharge Critical Care Note - Critical Care Note Total Time (mins): 35 <Charlie Troy - Last Filed: 10/20/21 12:12> Course - Vital Signs Last Recorded V/S: Last Vital Signs Temp 98.1 F 10/19/21 22:43 Pulse 94 10/20/21 07:13 Resp 16 10/20/21 06:39 BP 146/81 H 10/20/21 07:13 Pulse Ox 96 10/20/21 07:13 - Orders/Labs/Meds Orders: Active Orders 24 hr Category Date Time Status NPO [Nothing Per Oral Diet] [DIET] Diet 10/20/21 Breakfast Active CULTURE BLOOD [BC] Stat Lab 10/19/21 23:40 Received CULTURE BLOOD [BC] Stat Lab 10/19/21 23:44 Received Blood Culture x2 Reflex Set [OM.PC] Stat Oth 10/19/21 23:31 Ordered Saline Lock Insert [OM.PC] Stat Oth 10/19/21 22:45 Ordered Labs: Laboratory Tests 10/19/21 10/19/21 10/19/21 Range/Units 22:40 22:41 22:41 WBC 18.50 H (4.0-11.0) K/uL RBC 6.44 H (4.50-5.90) M/uL Hgb 19.6 H (13.0-17.0) g/dL Hct 55.4 H (38.0-50.0) % MCV 86.0 (80.0-98.0) fL MCH 30.4 (27.0-32.0) pg MCHC 35.4 (31.0-37.0) g/dL RDW Std Deviation 42.6 (28.0-62.0) fl RDW Coeff of Lakisha 14 (11.0-15.0) % Plt Count 221 (150-400) K/uL MPV 10.70 (7.40-12.00) fL Neut % (Auto) 88.9 H (48.0-80.0) % Lymph % (Auto) 6.3 L (16.0-40.0) % Trinity % (Auto) 4.5 (0.0-15.0) % Eos % (Auto) 0.2 (0.0-7.0) % Baso % (Auto) 0.1 (0.0-1.5) % Neut # (Auto) 16.5 H (1.4-5.7) K/uL Lymph # (Auto) 1.2 (0.6-2.4) K/uL Trinity # (Auto) 0.8 (0.0-0.8) K/uL Eos # (Auto) 0.0 (0.0-0.7) K/uL Baso # (Auto) 0.0 (0.0-0.1) K/uL Nucleated RBC % 0.0 /100WBC Nucleated RBCs # 0 K/uL INR APTT (18.6-31.3) SEC Sodium 139 (136-148) mmol/L Potassium 4.0 (3.5-5.1) mmol/L Chloride 99 (98-107) mmol/L Carbon Dioxide 19.9 L (21.0-32.0) mmol/L BUN 17 (7.0-18.0) mg/dL Creatinine 1.2 (0.8-1.3) mg/dL Est Cr Clr Drug Dosing TNP Estimated GFR (MDRD) > 60.0 ml/min Glucose 138 H (74-106) mg/dL Lactic Acid (0.4-2.0) mmol/L Calcium 10.2 H (8.5-10.1) mg/dL Magnesium 2.2 (1.8-2.4) mg/dL Total Bilirubin 3.1 H (0.2-1.0) mg/dL AST 214 H (15-37) IU/L ALT 659 H (14-63) IU/L Alkaline Phosphatase 291 H (46-116) U/L Troponin I < 0.050 (0.000-0.056) ng/mL Total Protein 8.6 H (6.4-8.2) g/dL Albumin 4.2 (3.4-5.0) g/dL Globulin 4.4 H (2.6-4.0) g/dL Albumin/Globulin Ratio 1.0 (0.9-1.6) Lipase 4561 H (73-393) U/L SARS-CoV-2 RNA (FARAZ) NEGATIVE (NEGATIVE) Blood Type Antibody Screen 10/19/21 10/19/21 10/19/21 Range/Units 22:41 22:55 22:55 WBC (4.0-11.0) K/uL RBC (4.50-5.90) M/uL Hgb (13.0-17.0) g/dL Hct (38.0-50.0) % MCV (80.0-98.0) fL MCH (27.0-32.0) pg MCHC (31.0-37.0) g/dL RDW Std Deviation (28.0-62.0) fl RDW Coeff of Lakisha (11.0-15.0) % Plt Count (150-400) K/uL MPV (7.40-12.00) fL Neut % (Auto) (48.0-80.0) % Lymph % (Auto) (16.0-40.0) % Trinity % (Auto) (0.0-15.0) % Eos % (Auto) (0.0-7.0) % Baso % (Auto) (0.0-1.5) % Neut # (Auto) (1.4-5.7) K/uL Lymph # (Auto) (0.6-2.4) K/uL Trinity # (Auto) (0.0-0.8) K/uL Eos # (Auto) (0.0-0.7) K/uL Baso # (Auto) (0.0-0.1) K/uL Nucleated RBC % /100WBC Nucleated RBCs # K/uL INR 1.13 APTT 26.3 (18.6-31.3) SEC Sodium (136-148) mmol/L Potassium (3.5-5.1) mmol/L Chloride (98-107) mmol/L Carbon Dioxide (21.0-32.0) mmol/L BUN (7.0-18.0) mg/dL Creatinine (0.8-1.3) mg/dL Est Cr Clr Drug Dosing Estimated GFR (MDRD) ml/min Glucose (74-106) mg/dL Lactic Acid 2.5 H* (0.4-2.0) mmol/L Calcium (8.5-10.1) mg/dL Magnesium (1.8-2.4) mg/dL Total Bilirubin (0.2-1.0) mg/dL AST (15-37) IU/L ALT (14-63) IU/L Alkaline Phosphatase (46-116) U/L Troponin I (0.000-0.056) ng/mL Total Protein (6.4-8.2) g/dL Albumin (3.4-5.0) g/dL Globulin (2.6-4.0) g/dL Albumin/Globulin Ratio (0.9-1.6) Lipase (73-393) U/L SARS-CoV-2 RNA (FARAZ) (NEGATIVE) Blood Type O NEGATIVE Antibody Screen NEGATIVE 12/27/21 Range/Units 03:35 WBC (4.0-11.0) K/uL RBC (4.50-5.90) M/uL Hgb (13.0-17.0) g/dL Hct (38.0-50.0) % MCV (80.0-98.0) fL MCH (27.0-32.0) pg MCHC (31.0-37.0) g/dL RDW Std Deviation (28.0-62.0) fl RDW Coeff of Lakisha (11.0-15.0) % Plt Count (150-400) K/uL MPV (7.40-12.00) fL Neut % (Auto) (48.0-80.0) % Lymph % (Auto) (16.0-40.0) % Trinity % (Auto) (0.0-15.0) % Eos % (Auto) (0.0-7.0) % Baso % (Auto) (0.0-1.5) % Neut # (Auto) (1.4-5.7) K/uL Lymph # (Auto) (0.6-2.4) K/uL Trinity # (Auto) (0.0-0.8) K/uL Eos # (Auto) (0.0-0.7) K/uL Baso # (Auto) (0.0-0.1) K/uL Nucleated RBC % /100WBC Nucleated RBCs # K/uL INR APTT (18.6-31.3) SEC Sodium (136-148) mmol/L Potassium (3.5-5.1) mmol/L Chloride (98-107) mmol/L Carbon Dioxide (21.0-32.0) mmol/L BUN (7.0-18.0) mg/dL Creatinine (0.8-1.3) mg/dL Est Cr Clr Drug Dosing Estimated GFR (MDRD) ml/min Glucose (74-106) mg/dL Lactic Acid 1.0 (0.4-2.0) mmol/L Calcium (8.5-10.1) mg/dL Magnesium (1.8-2.4) mg/dL Total Bilirubin (0.2-1.0) mg/dL AST (15-37) IU/L ALT (14-63) IU/L Alkaline Phosphatase (46-116) U/L Troponin I (0.000-0.056) ng/mL Total Protein (6.4-8.2) g/dL Albumin (3.4-5.0) g/dL Globulin (2.6-4.0) g/dL Albumin/Globulin Ratio (0.9-1.6) Lipase (73-393) U/L SARS-CoV-2 RNA (FARAZ) (NEGATIVE) Blood Type Antibody Screen Meds: Medications Discontinued Medications Generic Name Dose Route Start Last Admin Trade Name Freq PRN Reason Stop Dose Admin Hydromorphone HCl 1 mg 10/19/21 22:45 10/19/21 22:57 Hydromorphone 1 Mg/Ml Syringe IVPUSH 10/19/21 22:46 1 mg ONETIME ONE Administration Hydromorphone HCl 1 mg 10/20/21 00:12 10/20/21 00:18 Hydromorphone 1 Mg/Ml Syringe IVPUSH 10/20/21 00:13 1 mg ONETIME ONE Administration Hydromorphone HCl 1 mg 10/20/21 03:54 10/20/21 04:05 Hydromorphone 1 Mg/Ml Syringe IVPUSH 10/20/21 03:55 1 mg ONETIME ONE Administration Hydromorphone HCl 1 mg 10/20/21 08:22 10/20/21 08:43 Hydromorphone 1 Mg/Ml Syringe IVPUSH 10/20/21 08:23 1 mg ONETIME ONE Administration Sodium Chloride 1,000 mls @ 999 mls/hr 10/19/21 22:45 10/19/21 22:58 Normal Saline IV 10/19/21 23:45 999 mls/hr .Bolus ONE Administration Sodium Chloride 1,000 mls @ 999 mls/hr 10/19/21 23:30 10/19/21 23:41 Normal Saline IV 10/20/21 00:30 999 mls/hr .Bolus ONE Administration Sodium Chloride 1,000 mls @ 100 mls/hr 10/20/21 01:18 10/20/21 01:25 Normal Saline IV 10/20/21 11:17 100 mls/hr .Bolus ONE Administration Piperacillin Sod/Tazobactam 100 mls @ 100 mls/hr 10/20/21 05:54 10/20/21 06:06 Sod 4.5 gm/ Sodium Chloride IV 10/20/21 06:53 100 mls/hr ONETIME ONE Administration Sodium Chloride Confirm 10/20/21 06:03 10/20/21 07:01 Normal Saline Advbag Administered 10/20/21 06:04 Not Given Dose 100 mls @ as directed .ROUTE .STK-MED ONE Iopamidol 100 ml 10/20/21 00:06 10/20/21 00:07 Iopamidol 755 Mg/Ml 500 Ml Multipack Bottle IVPUSH 10/20/21 00:07 100 ml ONETIME STA Administration Nicotine 21 mg 10/20/21 03:54 10/20/21 04:05 Nicotine 21 Mg/24 Hr Patch TRDERM 10/20/21 03:55 21 mg ONETIME ONE Administration Ondansetron HCl 4 mg 10/19/21 22:45 10/19/21 22:57 Ondansetron 4 Mg/2 Ml Sdv IVPUSH 10/19/21 22:46 4 mg ONETIME ONE Administration Piperacillin Sod/Tazobactam Sod Confirm 10/20/21 06:04 10/20/21 07:01 Piperacillin/Tazobactam 4.5 Gm Advvial Administered 10/20/21 06:05 Not Given Dose 4.5 gm .ROUTE .STK-MED ONE - Re-Assessments/Exams Free Text/Narrative Re-Assessment/Exam: 10/20/21 08:00 Patient has been accepted to [facility]. Patient remained stable pain well controlled. Departure - Departure Time of Disposition: 08:04 Sepsis Event Note (ED) - Focused Exam Vital Signs: Vital Signs Pulse Resp BP Pulse Ox 10/20/21 07:13 94 146/81 H 96 10/20/21 06:39 96 16 137/71 95 10/20/21 05:55 77 153/80 H 10/20/21 04:12 77 147/79 H 10/20/21 02:40 81 18 124/65 95 10/20/21 01:08 98 135/95 H
[2021-10-19] MEDS ORDERED: HYDROmorphone 1 MG/ML Syringe IVPUSH ONE (22:45)
[2021-10-19] MEDS ORDERED: Ondansetron 4 MG/2 ML SDV IVPUSH ONE (22:45)
[2021-10-19] MEDS ORDERED: Sodium Chloride 0.9% 1,000 ML IV ONE ×2 (22:45→23:30)
[2021-10-19 23:18] LABS: BLOOD UREA NITROGEN,BUN 17 mg/dL (7.0-18.0); CARBON DIOXIDE,CO2 19.9 mmol/L (21.0-32.0); CHLORIDE,CL 99 mmol/L (98-107); GLUCOSE RANDOM 138 mg/dL (74-106); SODIUM,NA 139 mmol/L (136-148)
[2021-10-19 23:33] LABS: LIPASE 4561 U/L (73-393)
[2021-10-20] MEDS ORDERED: Iopamidol 755 MG/ML 500 ML Multipack Bottle IVPUSH STA (00:06)
[2021-10-20] MEDS ORDERED: HYDROmorphone 1 MG/ML Syringe IVPUSH ONE ×5 (00:12→12:58)
--- NOTE | 2021-10-20 01:12 | CT ---
Indication: GI bleed, abdominal pain, recent elevated LFTs, history of tonsillar cancer Technique: Contrast enhanced axial CT imaging through the abdomen and pelvis. 100 mL Isovue 370 contrast agent was administered intravenously. Sagittal and coronal reconstructions are provided. Comparison: PET-CT 08/05/2021 Findings: There is diffuse peripancreatic edema, consistent with acute pancreatitis. The pancreatic parenchyma demonstrates normal homogeneous enhancement. The pancreatic duct is nondilated. There is no peripancreatic fluid collection. The common bile duct is enlarged, measuring up to 9 mm diameter at level of the pancreatic head. There is layering hyperdensity filling most of the gallbladder lumen, consistent with sludge. There is no appreciable gallbladder wall thickening or surrounding edema. The liver is unremarkable. The spleen is nonenlarged. Scattered splenic calcifications are consistent with benign granulomas. The kidneys and adrenal glands are unremarkable. The portal vein is patent. There is mild atherosclerotic calcification of the distal aorta without aortic aneurysm. No significant lymphadenopathy is appreciated in the abdomen or pelvis. Percutaneous gastrostomy catheter is in place. The stomach is otherwise unremarkable. There is no small bowel wall thickening or abnormal distention. The appendix is noninflamed. There is no colonic wall thickening. Edema is noted in the central transverse mesocolon, likely secondary to pancreatic inflammation. Prominent fecal material is noted in the transverse colon. The osseous structures are unremarkable. Emphysematous changes are noted in the lung bases. Impression: 1. Diffuse peripancreatic edema, consistent with acute pancreatitis. No evidence of pancreatic necrosis or peripancreatic pseudocyst. 2. Enlarged common bile duct, measuring up to 9 mm at level of the pancreatic head, raising suspicion for distal obstruction. Further evaluation is recommended with MRCP. 3. Layering hyperdensity filling most of the gallbladder lumen, consistent with sludge. No findings to suggest cholecystitis. Recommend attention on follow-up. Please note that all CT scans at this facility use dose modulation, iterative reconstruction, and/or weight-based dosing when appropriate to reduce radiation dose to as low as reasonably achievable. Dictated by Mylene Marroquin MD @ 10/20/2021 1:09:44 AM (Electronically Signed)
[2021-10-20] MEDS ORDERED: Sodium Chloride 0.9% 1,000 ML IV ONE (01:18)
[2021-10-20] MEDS ORDERED: Nicotine 21 MG/24 Hr Patch TRDERM ONE (03:54)
[2021-10-20] MEDS ORDERED: Piperacillin/Tazobactam 4.5 GM in Sodium Chloride 0.9% 100 ML IV ONE (05:54)
[2021-10-20] MEDS ORDERED: Sodium Chloride 0.9% 100 ML ONE (06:03)
[2021-10-20] MEDS ORDERED: Piperacillin/Tazobactam 4.5 GM AdvVial ONE (06:04)
[2021-10-20 13:57] VITALS: BP 133/78; PULSE 95
== END 2021-10-20 13:01 ==
LOC: MW.ED 22:32
DX: K80.50 Calculus of bile duct without cholangitis or cholecystitis without obstruction (principal); R79.89 Other specified abnormal findings of blood chemistry; D72.829 Elevated white blood cell count, unspecified; J43.9 Emphysema, unspecified; K21.9 Gastro-esophageal reflux disease without esophagitis; Z91.013 Allergy to seafood; Z79.899 Other long term (current) drug therapy; Z20.822 Contact with and (suspected) exposure to COVID-19
CPT/HCPCS: 36415; 74177; 80053; 83605; 83690; 83735; 84484; 85025; 85610; 85730; 86850; 86900; 86901; 87040; 93005; 96365; 96375; 96376; 99285; A9270; J1170; J2405; J2543; J7030; Q9967; U0002

== ENCOUNTER 2023-10-23 12:21 | Emergency (ER) | payer SELFPAY ==
[2023-10-23 14:01] LABS: BASOPHILS ABSOLUTE AUTO 0.04 K/uL (0.00-0.20); BASOPHILS PERCENT AUTO 0.5 % (0.0-1.0); EOSINOPHILS ABSOLUTE AUTO 0.04 K/uL (0.00-0.45); EOSINOPHILS PERCENT AUTO 0.5 % (0.0-6.0); HEMOGLOBIN 18.1 g/dL (14.0-18.0); IMMATURE GRAN ABSOLUTE AUTO 0.06 K/uL (0.00-0.05); IMMATURE GRAN PERCENT AUTO 0.7 % (0.0-0.4); LYMPHOCYTES ABSOLUTE AUTO 1.27 K/uL (1.00-4.80); LYMPHOCYTES PERCENT AUTO 14.6 % (24.0-44.0); MEAN CORPUSCULAR HEMOGLOBIN 27.7 pg (28.0-32.0); MEAN CORPUSCULAR HGB CONC 34.2 g/dL (32.0-36.0); MEAN CORPUSCULAR VOLUME 81.2 fL (83.0-99.0); MEAN PLATELET VOLUME 9.1 fL (9.4-12.4); MONOCYTES ABSOLUTE AUTO 0.73 K/uL (0.00-0.80); MONOCYTES PERCENT AUTO 8.4 % (0.0-8.0); NEUTROPHILS ABSOLUTE AUTO 6.57 K/uL (1.80-7.70); NEUTROPHILS PERCENT AUTO 75.3 % (41.0-71.0); PLATELET COUNT,PLT 205 K/uL (150-400); RED BLOOD CELL COUNT 6.53 M/uL (4.52-5.90); WHITE BLOOD CELL COUNT,WBC 8.71 K/uL (3.9-11.3)
[2023-10-23] MEDS ORDERED: Ondansetron 4 MG/2 ML SDV IVPUSH ONE (14:07)
[2023-10-23 14:15] LABS: INR 1.07 (0.86-1.11); PTT,PARTIAL THROMBOPLSTIN TIME 29.5 SEC (23.9-30.7)
[2023-10-23] MEDS ORDERED: Lactated Ringers 1,000 ML IV SCH ×2 (14:15→14:30)
[2023-10-23] MEDS ORDERED: Ketorolac 30 MG/ML SDV IVPUSH ONE (14:16)
[2023-10-23] MEDS ORDERED: Acetaminophen 1,000 MG in Premix Bag 1 BAG IV ONE (14:17)
[2023-10-23 14:30] LABS: CORONAVIRUS COVID-19 NAA NEGATIVE (NEGATIVE); INFLUENZA A NAA NEGATIVE (NEGATIVE); INFLUENZA B NAA NEGATIVE (NEGATIVE); RESPIRATORY SYNCYTIAL VIR NAA NEGATIVE (NEGATIVE)
[2023-10-23 14:34] LABS: A/G RATIO 0.9 (0.9-1.6); ALBUMIN 3.9 g/dL (3.4-5.0); BILIRUBIN TOTAL 0.8 mg/dL (0.2-1.0); CALCIUM 9.4 mg/dL (8.5-10.1); CARBON DIOXIDE,CO2 25.4 mmol/L (21.0-32.0); CREATININE 1.1 mg/dL (0.8-1.3); EST CRCL DRUG DOSING (CG) 67.6 mL/min; MAGNESIUM 2.3 mg/dL (1.8-2.4); POTASSIUM,K 3.8 mmol/L (3.5-5.1); PROTEIN TOTAL,TP 8.2 g/dL (6.4-8.2)
[2023-10-23 14:36] LABS: LACTIC ACID 1.6 mmol/L (0.4-2.0)
[2023-10-23] MEDS ORDERED: Iopamidol 755 MG/ML 500 ML Multipack Bottle IVPUSH STA (15:20)
[2023-10-23 18:06] VITALS: BP 167/83; PULSE 95
== END 2023-10-23 18:06 | disposition home or self-care (01) ==
LOC: MW.ED 12:21
DX: E86.0 Dehydration (principal); F17.210 Nicotine dependence, cigarettes, uncomplicated; Z91.013 Allergy to seafood; Z79.899 Other long term (current) drug therapy; Z90.49 Acquired absence of other specified parts of digestive tract
CPT/HCPCS: 0241U; 36415; 71260; 74177; 80053; 83605; 83690; 83735; 85025; 85610; 85730; 86850; 86900; 86901; 93005; 96361; 96365; 96375; 99284; J0131; J1885; J2405; J7120; Q9967